=== PATIENT | female | born 1950 | race Two or more races ===

== ENCOUNTER 2016-12-13 11:32 | Emergency (ER) | payer MEDICARE, MEDICAID ==
[~2016-12-13] VITALS: Ht 167.6 cm; Wt 83.5 kg
[2016-12-13 11:48] VITALS: BP 141/92
== END 2016-12-13 13:38 | disposition home or self-care (01) ==
LOC: ER 11:36
DX: S62.514A Nondisplaced fracture of proximal phalanx of right thumb, initial encounter for closed fracture (principal); I10 Essential (primary) hypertension; E11.9 Type 2 diabetes mellitus without complications; W01.0XXA Fall on same level from slipping, tripping and stumbling without subsequent striking against object, initial encounter; Y93.89 Activity, other specified; Y92.89 Other specified places as the place of occurrence of the external cause; Y99.9 Unspecified external cause status
CPT/HCPCS: 29125; 73140; 99284; A4606; Z7610

== ENCOUNTER 2020-10-30 15:53 | Inpatient (IN) | payer MEDICARE, OTHER ==
[~2020-10-30] VITALS: Ht 162.6 cm; Wt 76.7 kg
--- NOTE | 2020-10-30 16:15 | NUR ---
DR. MENDIETA AT FOR GABRIELLE.
[2020-10-30] MEDS ORDERED: DEXAMETHASONE SOD PHOSPHATE 10 MG/ML VIAL IV ONE (16:30)
[2020-10-30] MEDS ORDERED: DEXAMETHASONE SOD PHOSPHATE 10 MG/ML VIAL ONE (16:32)
[2020-10-30] MEDS ORDERED: METF-442 PO (16:59)
[2020-10-30] MEDS ORDERED: IPRA12.9 INH (16:59)
[2020-10-30] MEDS ORDERED: SIMV-49 PO (16:59)
[2020-10-30] MEDS ORDERED: AMLO-212 PO (16:59)
[2020-10-30] MEDS ORDERED: DOXY100C2 PO (16:59)
[2020-10-30] MEDS ORDERED: LINA5TAB PO (16:59)
[2020-10-30] MEDS ORDERED: LORA-258 PO (16:59)
[2020-10-30] MEDS ORDERED: PROP20TA19 PO (16:59)
[2020-10-30] MEDS ORDERED: ICOS1CAP PO (16:59)
[2020-10-30] MEDS ORDERED: DAPA10TA PO (16:59)
[2020-10-30 17:06] LABS: BASOPHILS # (AUTO) 0.2 /CMM (0.0-0.2); BASOPHILS % (AUTO) 2.2 % (0.0-2.0); EOSINOPHILS % (AUTO) 0.2 % (0.0-6.0); HEMATOCRIT 37 % (33-45); HEMOGLOBIN 12.1 g/dL (11.5-14.8); LYMPHOCYTES # (AUTO) 0.6 /CMM (0.8-4.8); LYMPHOCYTES % (AUTO) 5.5 % (20.0-44.0); MEAN CORPUSCULAR HGB CONC 33 g/dl (31.0-36.0); MEAN CORPUSCULAR VOLUME 86 fL (82-100); MONOCYTES # (AUTO) 0.4 /CMM (0.1-1.30); MONOCYTES % (AUTO) 3.2 % (2.0-12.0); NEUTROPHILS # (AUTO) 10.1 /CMM (1.8-8.9); NEUTROPHILS % (AUTO) 88.9 % (43.0-81.0); PLATELET COUNT (AUTO) 346 /CMM (150-450); RED BLOOD CELL COUNT(AUTO) 4.33 MIL/uL (4.0-5.2); WHITE BLOOD COUNT (AUTO) 11.4 K/uL (4.3-11.0)
[2020-10-30 17:14] LABS: CALCIUM, SERUM 8.6 mg/dL (8.5-10.1); CARBON DIOXIDE 26 mmol/L (21-32); CHLORIDE 99 mmol/L (98-107); CREATININE 0.7 mg/dL (0.6-1.3); GLUCOSE 111 mg/dL (74-106); POTASSIUM 4.4 mmol/L (3.5-5.1); SODIUM SERUM 133 mmol/L (136-145); UREA NITROGEN, BLOOD 12 mg/dL (7-18)
[2020-10-30 17:23] LABS: D-DIMER 3.03 mg/L(FEU (0.17-0.50)
[2020-10-30 17:27] LABS: ALANINE AMINOTRANSFERASE 30 U/L (12-78); ALBUMIN 2.2 g/dL (3.4-5.0); ALKALINE PHOSPHATASE 69 U/L (46-116); ASPARTATE AMINOTRANSFERASE 37 U/L (15-37); B-TYPE NATRIURETIC PEPTIDE 289 PG/ML (0-125); BILIRUBIN,TOTAL 0.4 mg/dL (0.2-1.0); TOTAL PROTEIN, SERUM 7.6 g/dL (6.4-8.2)
[2020-10-30] MEDS ORDERED: DEXTROSE 50%-WATER 50 ML DISP.SYRIN IV PRN (17:30)
[2020-10-30] MEDS ORDERED: ALBUTEROL SULFATE 8 GM HFA.AER.AD IH PRN (17:30)
[2020-10-30 17:31] LABS: CREATINE KINASE, TOTAL 53 U/L (26-192); FERRITIN 259 ng/mL (8-388)
--- NOTE | 2020-10-30 17:34 | NUR ---
PATIENT IS ON NON REBREATHER MASK 15 L OF O2 WITH O2SAT 97% IV ON LEFT WRIST 20G, BLOOD SAMPLE SENT TO LAB URINE SAMPLE SENT TO LAB PATINET ALERT ORIENTED X3 DAUGHTER IS PRESENT
[2020-10-30 17:45] LABS: C-REACTIVE PROTEIN 5.4 mg/dL (0.0-0.9)
[2020-10-30 17:48] LABS: BILIRUBIN,URINE Negative (NEGATIVE); COLOR,URINE YELLOW (YELLOW); LEUKOCYTE ESTERASE ,URINE Negative (NEGATIVE); NITRITE, URINE Negative (NEGATIVE); PH,URINE 5.5 (5.0-8.0); PROTEIN,URINE 100 mg/dl (NEGATIVE); UGLUCOSE Negative (NEGATIVE); UROBILINOGEN,URINE 0.2 EU/dL (0.2)
[2020-10-30] MEDS ORDERED: ONDANSETRON HCL/PF 4 MG/2 ML VIAL IVP PRN (18:00)
[2020-10-30] MEDS ORDERED: FAMOTIDINE (20 MG) 20 MG TABLET PO ONE (19:00)
[2020-10-30] MEDS ORDERED: MAG HYDROX/AL HYDROX/SIMETH 30 ML UDC PO PRN (19:00)
[2020-10-30] MEDS ORDERED: FAMOTIDINE (20 MG) 20 MG TABLET PO SCH (19:00)
--- NOTE | 2020-10-30 19:02 | NUR ---
BED 101
[2020-10-30] MEDS ORDERED: FAMOTIDINE (20 MG) 20 MG TABLET ONE (19:05)
--- NOTE | 2020-10-30 19:14 | NUR ---
ATTEMPTED TO GIVE REPORT, NURSE IS NOT AVAILABLE
--- NOTE | 2020-10-30 19:15 | NUR ---
PT CURRENTLY EATING AT BEDSIDE W/ NAD NOTED. PT HAS NO MEDICAL COMPLAINTS AT THIS TIME. PT NOT IN RESPIRATORY DISTRESS. PT CONNECTED TO THE BURLAP MAN AND POX. WILL CONTINUE TO MONITOR
[2020-10-30] MEDS ORDERED: INSULIN REGULAR, HUMAN 100 UNIT/ML 10 ML VIAL ONE (19:21)
[2020-10-30] MEDS: BLOOD SUGAR DIAGNOSTIC 1 EACH STRIP IN SCH ×2 (19:25→22:00)
[2020-10-30] MEDS: INSULIN REGULAR, HUMAN 100 UNIT/ML 3 ML VIAL SQ PRN ×2 (19:25→23:12)
[2020-10-30] MEDS ORDERED: HEPARIN SODIUM, PORCINE 5000 UNITS/1 ML VIAL SQ SCH (21:00)
[2020-10-30] MEDS ORDERED: CEFEPIME 1 GM in IV D5W 50 ML IV SCH (21:00)
[2020-10-30] MEDS: CEFEPIME 2 GM in IV D5W 100 ML IV SCH (21:10)
--- NOTE | 2020-10-30 21:16 | NUR ---
RN NOTES RECEIVED ER ADMISSION REPORT FROM DIVINA SAHU. ALL PERTINENT ADMISSION INFO REGARDING PT NOTED. WILL WAIT FOR PT TO BE TRANSFERRED TO UNIT AND ADDRESS NEEDS ACCORDINGLY. AIRCRAFT POWERPLANT REPAIRER MADE AWARE.
[2020-10-30] MEDS ORDERED: CEFEPIME 1 GM VIAL ONE (21:19)
--- NOTE | 2020-10-30 21:35 | NUR ---
RN NOTES RECEIVED PT FROM ER VIA GURNEY ACCOMPANIED BY 1 ER STAFF AND TRANSFERRED TO BED VIA 2 PERSON ASSIST. PT IS ALERT AND ORIENTED X4 BURKINAN SPEAKING. PT ON 100% NRB MASK WITH RESPIRATIONS EVEN AND UNLABORED, PATIENT ALSO NOTED TO BE COUGHING FROM TIME TO TIME. COMPREHENSIVE PHYSICAL ASSESSMENT AND PATIENT CARE DONE. CALL LIGHT WITHIN REACH, SAFETY MEASURES AND ISOLATION PRECAUTION IN PLACE, WILL CONTINUE MONITOR AND ASSESS THROUGHOUT THE SHIFT. WILL CARRY OUT MD ORDERS ACCORDINGLY. LOADING UNIT OPERATOR MADE AWARE.
--- NOTE | 2020-10-30 21:42 | NUR ---
PT TRANSPORTED TO ROOM IN STABLE CONDITION VIA ACLS PROTOCOL
[2020-10-30 22:00] VITALS: BP 134/69
--- NOTE | 2020-10-30 22:15 | NUR ---
2215 NOTED LEFT WRIST IV SITE LEAKING, INSERTED NEW IV ON LFA WITH GAUGE 20 CATH, ATTEMPTED X1 WITH GOOD BLOOD RETURN NOTED. SITE SECURED AND LABELED. PATIENT TOLERATED PROCEDURE WELL. OLD IV SITE REMOVED.
[2020-10-30] MEDS: SIMVASTATIN 20 MG TABLET PO SCH ×2 (22:45→23:14)
[2020-10-30] MEDS: PROPRANOLOL HCL 10 MG TABLET PO SCH (22:45)
--- NOTE | 2020-10-30 23:00 | NUR ---
RN NOTES PATIENT REMAINS IN NO ACUTE RESPIRATORY DISTRESS AT THIS TIME, NO CHANGES TO CONDITION/STATUS. OBGYN HOSPITALIST PHYSICIAN WELL AWARE. WILL CONTINUE TO MONITOR AND REASSESS FOR ANY CHANGES THROUGHOUT THE SHIFT
--- NOTE | 2020-10-30 23:15 | NUR ---
RN NOTES PATIENT REFUSED INSULIN COVERAGE ; ACCU CHECK DON-189MG/DL. PATIENT SAID ( WITH HEAVENLY TRANSPORTATION MAINTENANCE OPERATOR <DAUGHTER>) THAT PT DOESNT DO INSULIN AND ONLY ORAL MEDICATION (METFORMIN) PATIENT ALSO REFUSED TO TAKE ZOCOR /SIMVASTATIN SHE DOESNT TAKE ANY CHOLESTEROL MEDS. CORNELL MURCIA MADE AWARE. WILL INFORM MD. Addendum: 10/30/20 at 0298 by JONATHAN PASTOR RN WILL DISCARD ZOCOR IT HAS ALREADY BEEN OPEN FOR ADMINISTRATION. CORNELL MURCIA MADE AWARE.
[2020-10-30] MEDS: LORAZEPAM 1 MG TABLET PO PRN (23:21)
[2020-10-31] VITALS: BP 135/69
--- NOTE | 2020-10-31 03:00 | NUR ---
RN NOTES NO CHANGE IN PATIENT CONDITION AT THIS TIME PATIENT VITALS STABLE, NO SIGNS OF ACUTE RESPIRATORY DISTRESS. CHEMICAL RECOVERY OPERATOR MADE AWARE. WILL CONTINUE TO MONITOR AND REASSESS FOR ANY CHANGES THROUGHOUT THE SHIFT.
[2020-10-31] MEDS: ACETAMINOPHEN 325 MG TABLET PO PRN ×3 (03:53→15:34)
--- NOTE | 2020-10-31 03:53 | NUR ---
DIVINA NOTES NOTED PT'S TEMP 101.4@6068. PRN MEDS GIVEN AND COOLING MEASURES PROVIDED. CORNELL MURCIA MADE AWARE. WILL RE-EVALUATE AFTER 30 MINUTES- 1 HOUR. WILL CONTINUE TO MONITOR Addendum: 10/31/20 at 0659 by JONATHAN PASTOR RN @0600 TEMPT IS AT 98.3. WILL CONTINUE TO MONITOR AND ASSESS. CORNELL MURCIA MADE AWARE
[2020-10-31 04:00] VITALS: BP 132/72
[2020-10-31 06:42] LABS: BASOPHILS % (AUTO) 0.1 % (0.0-2.0); HEMATOCRIT 35 % (33-45); HEMOGLOBIN 11.5 g/dL (11.5-14.8); LYMPHOCYTES # (AUTO) 0.9 /CMM (0.8-4.8); LYMPHOCYTES % (AUTO) 9.7 % (20.0-44.0); MEAN CORPUSCULAR HGB CONC 33 g/dl (31.0-36.0); MEAN CORPUSCULAR VOLUME 84 fL (82-100); MONOCYTES # (AUTO) 0.3 /CMM (0.1-1.30); MONOCYTES % (AUTO) 3.6 % (2.0-12.0); NEUTROPHILS # (AUTO) 7.7 /CMM (1.8-8.9); NEUTROPHILS % (AUTO) 86.6 % (43.0-81.0); PLATELET COUNT (AUTO) 331 /CMM (150-450); RED BLOOD CELL COUNT(AUTO) 4.19 MIL/uL (4.0-5.2); WHITE BLOOD COUNT (AUTO) 8.9 K/uL (4.3-11.0)
--- NOTE | 2020-10-31 06:58 | NUR ---
RN CLOSING NOTE: PATIENT REMAINS IN ROOM IN NO SIGNS OF RESPIRATORY DISTRESS. SAFETY MEASURES IMPLEMENTED, BED IN LOWEST POSITION, LOCKED, SIDE RAILS UP, CALL LIGHT WITHIN REACH. ALL NEEDS AND ORDERS ADDRESSED DURING THE SHIFT. IV ACCESS MAINTAINED INTACT, SECURED AND FLUSHING WELL. ALL DUE MEDS GIVEN ORDERED & SCHEDULED ; PATIENT TOLERATED WELL. PATIENT KEPT CLEAN AND COMFORTABLE WITHIN THE SHIFT. PATIENT ENDORSED TO INCOMING SHIFT RN WITH STABLE VITAL SIGN AND FOR CONTINUITY OF CARE.
[2020-10-31 07:19] LABS: ALBUMIN 2.1 g/dL (3.4-5.0); BILIRUBIN,TOTAL 0.3 mg/dL (0.2-1.0); CALCIUM, SERUM 8.4 mg/dL (8.5-10.1); CREATININE 0.7 mg/dL (0.6-1.3); POTASSIUM 3.5 mmol/L (3.5-5.1)
--- NOTE | 2020-10-31 07:30 | NUR ---
RN OPENING NOTE PT IS ALERT AND ORIENTED X4 EGYPTIAN SPEAKING. PT ON 100% NRB MASK WITH RESPIRATIONS EVEN AND UNLABORED, PATIENT ALSO NOTED TO BE COUGHING FROM TIME TO TIME. IV NOTED ON L FOREARM 20G, INTACT AND PATENT. CALL LIGHT WITHIN REACH, SAFETY MEASURES AND ISOLATION PRECAUTION IN PLACE, WILL CONTINUE MONITOR AND ASSESS THROUGHOUT THE SHIFT. WILL CONT TO MONITOR AND PROVIDE TREATMENT
[2020-10-31 08:00] VITALS: BP 148/72
[2020-10-31] MEDS: BLOOD SUGAR DIAGNOSTIC 1 EACH STRIP IN SCH ×4 (09:08→22:24)
[2020-10-31] MEDS: AMLODIPINE BESYLATE 5 MG TABLET PO SCH (09:10)
[2020-10-31] MEDS: PROPRANOLOL HCL 10 MG TABLET PO SCH ×2 (09:10→20:48)
[2020-10-31] MEDS: DEXAMETHASONE SOD PHOSPHATE 10 MG/ML VIAL IV SCH (09:10)
[2020-10-31] MEDS: DOXYCYCLINE HYCLATE (100 MG) 100 MG TABLET PO SCH ×2 (09:10→17:16)
[2020-10-31] MEDS: GUAIFENESIN/CODEINE 10 ML UDC PO PRN ×2 (09:11→15:37)
[2020-10-31] MEDS: CEFEPIME 2 GM in IV D5W 100 ML IV SCH ×2 (09:11→20:48)
[2020-10-31 12:00] VITALS: BP 137/63
[2020-10-31] MEDS: INSULIN REGULAR, HUMAN 100 UNIT/ML 3 ML VIAL SQ PRN ×3 (12:06→22:26)
[2020-10-31] MEDS: ENSURE ENLIVE CHOC 237 ML CAN PO SCH ×2 (12:06→17:16)
[2020-10-31 16:00] VITALS: BP 120/69
[2020-10-31] MEDS: FUROSEMIDE 20 MG/2 ML VIAL IV SCH (17:16)
[2020-10-31] MEDS: APIXABAN 5 MG TABLET PO SCH (17:46)
--- NOTE | 2020-10-31 18:47 | NUR ---
RN CLOSING NOTE PT IS ALERT AND ORIENTED X4 VENEZUELAN SPEAKING. PT ON 100% NRB MASK WITH RESPIRATIONS EVEN AND UNLABORED, PATIENT ALSO NOTED TO BE COUGHING FROM TIME TO TIME. IV NOTED ON L FOREARM 20G, INTACT AND PATENT. CURRENTLY ON CONSISTENT CARB DIET, TOELRATING WELL BUT ALSO CONSUMING FOODS BROUGHT BY FAMILY. CALL LIGHT WITHIN REACH, SAFETY MEASURES AND ISOLATION PRECAUTION IN PLACE, WILL CONTINUE MONITOR AND ASSESS THROUGHOUT THE SHIFT. WILL ENDORSE TO RIVET MACHINE OPERATOR NURSE FOR MICK.
--- NOTE | 2020-10-31 19:40 | NUR ---
RN OPENING NOTES RECEIVED PT IN BED, SLEEPING EASILY AROUSABLE BY VERBAL STIMULI. ALERT AND ORIENTED X4. ON O2 NONREBREATHER AT 15L. DENIES ANY SOB. NO RESP DISTRESS NOTED. NONPRODUCTIVE COUGH NOTED. KEPT HOB ELEVATED. ON TELE MONITORING SHOWS SR WITH HR OF 63. DENIES ANY PAIN OR WEAKNESS AT THIS TIME. LFA IV G20 PATENT AND INTACT, FLUSHED WITH NS. ALL SAFETY MEASURES IMPLEMENTED PER PROTOCOL. CALL LIGHT WITHIN REACH. BED LOCKED IN LOWEST POSITION.
[2020-10-31 20:00] VITALS: BP 114/71
[2020-10-31] MEDS: SIMVASTATIN 20 MG TABLET PO SCH (22:18)
[2020-10-31] MEDS: LORAZEPAM 1 MG TABLET PO PRN (22:42)
--- NOTE | 2020-10-31 22:42 | NUR ---
RN NOTES PT REQUESTED ATIVAN FOR SLEEP. DENIES ANY ANXIETY. NO RESP DISTRESS NOTED. ATIVAN 0.5MG GIVEN ORDERED.
[2020-11-01] VITALS: BP 120/67
--- NOTE | 2020-11-01 02:17 | NUR ---
RN NOTES SAMEERA FROM LAB CALLED, PT POSITIVE FOR COVID PCR. CHARGE NURSE AWARE.
[2020-11-01 04:00] VITALS: BP 131/78
[2020-11-01] MEDS: ACETAMINOPHEN 325 MG TABLET PO PRN (04:04)
--- NOTE | 2020-11-01 04:05 | NUR ---
RN NOTE NOTED WITH ELEVATED BODY TEMP 101.3. NO CHANGES IN LOC NOTED. TYLENOL 650 MG GIVEN ORDERED. COOLING MEASURES APPLIED. WILL CONTINUE TO MONITOR.
[2020-11-01] MEDS: GUAIFENESIN/CODEINE 10 ML UDC PO PRN ×3 (04:16→17:51)
--- NOTE | 2020-11-01 06:15 | NUR ---
RN NOTE BODY TEMP AT 99.9.
[2020-11-01 06:17] LABS: BASOPHILS % (AUTO) 0.2 % (0.0-2.0); EOSINOPHILS % (AUTO) 0.1 % (0.0-6.0); HEMATOCRIT 35 % (33-45); HEMOGLOBIN 11.9 g/dL (11.5-14.8); LYMPHOCYTES # (AUTO) 0.8 /CMM (0.8-4.8); LYMPHOCYTES % (AUTO) 8.8 % (20.0-44.0); MEAN CORPUSCULAR HGB CONC 34 g/dl (31.0-36.0); MEAN CORPUSCULAR VOLUME 84 fL (82-100); MONOCYTES # (AUTO) 0.4 /CMM (0.1-1.30); NEUTROPHILS # (AUTO) 8.3 /CMM (1.8-8.9); NEUTROPHILS % (AUTO) 86.9 % (43.0-81.0); PLATELET COUNT (AUTO) 352 /CMM (150-450); RED BLOOD CELL COUNT(AUTO) 4.23 MIL/uL (4.0-5.2); WHITE BLOOD COUNT (AUTO) 9.6 K/uL (4.3-11.0)
[2020-11-01 07:00] LABS: CALCIUM, SERUM 9.1 mg/dL (8.5-10.1); CREATININE 0.8 mg/dL (0.6-1.3); POTASSIUM 3.7 mmol/L (3.5-5.1)
--- NOTE | 2020-11-01 07:15 | NUR ---
RN CLOSING NOTES PT CONTINUE ON NRB AT 15L O2 SAT AT 94 %. DENIES ANY SOB. PT WAS COUGHING, ROBITUSSIN AC SYRUP GIVEN ORDERED. NO RESP DISTRESS NOTED. TELE MONITORING SHOWS SR. ON FREQUENT VISUAL CHECK. ASSISTED IN GOING TO BEDSIDE COMMODE. DENIES ANY PAIN AT THIS TIME. KEPT HOB ELEVATED. ASSISTED TO NEEDS. CALL LIGHT WITHIN REACH AT ALL TIMES. BED LOCKED IN LOWEST POSITION. ISOLATION PRECAUTION MAINTAINED.
[2020-11-01 08:00] VITALS: BP 127/74
[2020-11-01] MEDS: ENSURE ENLIVE CHOC 237 ML CAN PO SCH ×3 (08:00→17:44)
--- NOTE | 2020-11-01 08:00 | NUR ---
RN Opening note Received patient in bed, awaken able to responds all stimuli, Pt does no c/o pain or distress. Skin is warm to touch keep clean/dry intact IV site, respiratory even and unlabored with oxygen at 15L via NRM with high flow O2sat 90-93%. Kept locked bed with elevated HOB for aspiration precaution and ensure airway and lowest bed foe safety. Call light within reach, will continue to monitor.
[2020-11-01 08:41] LABS: ABG BASE EXCESS 5.4 mmol/L; ABG OXYGEN SATURATION 90.1 % (92.0-98.5); ABG PCO2 36.1 mmHg (35.0-45.0); ABG PH 7.514 (7.350-7.450); ABG PO2 55.6 mmHg (75.0-100.0); AaDO2 621.3 mmHg; COHb 0.2 % (0.5-1.5); MetHb 0.3 % (0.0-1.5); O2Hb 89.6 % (94.0-97.0); SITE, ABG Right Radial; VENT MODE, BG NON REBREATHER
[2020-11-01] MEDS: AMLODIPINE BESYLATE 5 MG TABLET PO SCH (09:00)
[2020-11-01] MEDS: BLOOD SUGAR DIAGNOSTIC 1 EACH STRIP IN SCH ×4 (09:42→21:30)
[2020-11-01] MEDS: CEFEPIME 2 GM in IV D5W 100 ML IV SCH ×2 (09:43→21:29)
[2020-11-01] MEDS: DEXAMETHASONE SOD PHOSPHATE 10 MG/ML VIAL IV SCH (09:44)
[2020-11-01] MEDS: DOXYCYCLINE HYCLATE (100 MG) 100 MG TABLET PO SCH ×2 (09:44→17:51)
[2020-11-01] MEDS: FUROSEMIDE 20 MG/2 ML VIAL IV SCH (09:44)
[2020-11-01] MEDS: PROPRANOLOL HCL 10 MG TABLET PO SCH ×2 (09:44→21:12)
[2020-11-01 09:45] LABS: LYMPHOCYTES % (MANUAL) 9 % (16-48); MONOCYTES % (MANUAL) 5 % (0-11.0); MYELOCYTES % 1 % (0-0); NEUTROPHILS % (MANUAL) 85 (42-76)
[2020-11-01] MEDS: LINAGLIPTIN 5 MG TABLET PO SCH (09:45)
[2020-11-01] MEDS: APIXABAN 5 MG TABLET PO SCH ×2 (09:46→17:52)
--- NOTE | 2020-11-01 09:48 | NUR ---
PLACED INTO HIGH FLOW DUE TO 56 PAO2 AND 93% SPO2 ON NONREBREATHER Addendum: 11/01/20 at 0948 by KATHERINE ARDON RT Amended: Links added.
[2020-11-01 12:00] VITALS: BP 130/73
[2020-11-01] MEDS ORDERED: TOCILIZUMAB 400 MG in IV NS 0.9% 80 ML IV ONE (12:00)
[2020-11-01] MEDS: INSULIN REGULAR, HUMAN 100 UNIT/ML 3 ML VIAL SQ PRN ×3 (12:44→21:31)
[2020-11-01] MEDS ORDERED: REMDESIVIR (CHARGED) 200 MG, *LOADING DOSE 1 EA in IV NS 0.9% 210 ML IV ONE (14:00)
[2020-11-01 16:00] VITALS: BP 129/75
--- NOTE | 2020-11-01 18:51 | NUR ---
RN closing Patient in bed resting, does no appears distress or discomfort. Skin is warm to touch, keep clean/dry, intact new midline on left upper arm, good patent with flash. Respiratory even and unlabored with oxygen at 15L via NRM with HFNC O2sat 90-93%. Kept elevated HOB for ensure air way and aspiration precaution and lowest bed for safety. Call light within reach, will endorse retail shift supervisor
--- NOTE | 2020-11-01 19:25 | NUR ---
"RN OPENING NOTES: RECEIVED PT A/OX 4 IN BED RESTING COMFORTABLY. PATIENT IN NO S/SX OF ACUTE DISTRESS AT THIS TIME BUT NOTED SOME INTERMITTENT COUGHING EPISODES. CURRENTLY PATIENT IS ON HIGH FLOW 40L|100% AND NRB MASK @15L|100%; TOLERATING WELL AND 0 SAT IS AT 92%. PATIENT ON TELE MONITORING READING SINUS RHYTHM HR IS @70S AT THE TIME OF RECEIVED. PATIENT ON CONSISTENT CARB DIET; TOLERATES WELL. NOTED IV SITE ON L UA MIDLINE ;PATENT, INTACT AND FLUSHING WELL; NO S/S OF INFECTION OR INFILTRATION. SAFETY MEASURES HAVE BEEN PROVIDED AND IMPLEMENTED. PATIENT BED ALARM IS ON. HEAD OF BED ELEVATED. BED IS LOCKED, IN LOWEST POSITION AND SIDE RAILS UP. CALL LIGHT WITHIN REACH OF THE PATIENT. APPLICABLE ISOLATION PRECAUTIONS IN PLACE. WILL CONTINUE TO MONITOR AND REASSESS FOR ANY CHANGES AND WILL CARRY OUT ANY ONGOING AND ACTIVE MD ORDER."
[2020-11-01 20:00] VITALS: BP 113/70
--- NOTE | 2020-11-01 21:00 | NUR ---
RN NOTES PICC LINE NURSE (COURTNEY) FACILITATED MIDLINE INSERTION @ R UA MIDLINE #18. NOTED OT BE SECURED, INTACT, PATENT AND FLUSHING WELL. DERRICK BUILDER MADE AWARE. WILL CONTINUE TO MONITOR AND ASSES THROUGHOUT THE SHIFT.
[2020-11-01] MEDS: SIMVASTATIN 20 MG TABLET PO SCH (21:11)
--- NOTE | 2020-11-01 23:00 | NUR ---
RN NOTES PATIENT REMAINS IN NO ACUTE RESPIRATORY DISTRESS AT THIS TIME, NO CHANGES TO CONDITION/STATUS. BOOKY WELL AWARE. WILL CONTINUE TO MONITOR AND REASSESS FOR ANY CHANGES THROUGHOUT THE SHIFT
[2020-11-01] MEDS: LORAZEPAM 1 MG TABLET PO PRN (23:14)
[2020-11-02] VITALS: BP_SYST 111; BP_SYST 115; BP_DIAS 64; BP_DIAS 65
--- NOTE | 2020-11-02 01:00 | NUR ---
RN NOTES NOTED PATIENT'S O2 SAT AT THIS TIME @ 88%. PATIENT ON SIDE LYING POSITION AND BEEN COUGHING INTERMITTENTLY. PRN TURNED AND REPOSITIONED PATIENT TO MAXIMIZE GOOD VENTILATION AND O2 ADMINISTRATION VIA NC- HIGHFLOW AND NRB MASK. FELT STRIP FINISHER MADE AWARE AND WILL INFORM DOMINIK CONNER AND TO SECURE FOR ANY ORDERS NEEDED.
--- NOTE | 2020-11-02 01:15 | NUR ---
RN NOTES CALLED DOMINIK CONNER, AND PROVIDED UPDATE REGARDING PATIENT, ALL PERTINENT INFO GIVEN REGARDING PATIENT AND CURRENT STATUS ( O2 SAT @88%). NO ORDERS GIVEN. MALL PLANT CARETAKER MADE AWARE. WILL CONTINUE TO MONITOR AND ASSESS THROUGHOUT THE SHIFT.
[2020-11-02] MEDS: GUAIFENESIN/CODEINE 10 ML UDC PO PRN ×2 (01:19→23:33)
--- NOTE | 2020-11-02 03:00 | NUR ---
RN NOTES NO CHANGES IN PATIENT CONDITION AT THIS TIME PATIENT VITALS STABLE, NO SIGNS OF ACUTE RESPIRATORY DISTRESS. PATIENT STILL IN BED SLEEPING COMFORTABLY. NO COMPLAINTS OF PAIN OR ANY DISCOMFORT AT THIS TIME. PATIENT 02 SATURATION IS @93% AT THIS TIME. WILL CONTINUE TO MONITOR AND REASSESS FOR ANY CHANGES THROUGHOUT THE SHIFT.
[2020-11-02 04:00] VITALS: BP 107/54
--- NOTE | 2020-11-02 06:56 | NUR ---
RN CLOSING NOTE: PATIENT REMAINS IN ROOM IN NO SIGNS OF RESPIRATORY DISTRESS. 02 SAT REMAINS WITHIN 90-93% STILL ON HIGHFLOW AND NRB MASK AT THIS TIME SAME SETTINGS PRESCRIBED. WILL INFORM INCOMING RN AND AM SHIFT SALES AND IN HOME DELIVERY SPECIALIST THAT PT HAD EPISODES THAT O2 SAT WENT BELOW 88% AND NEEDS TO BE STRICTLY MONITORED. SAFETY MEASURES IMPLEMENTED, BED IN LOWEST POSITION, LOCKED, SIDE RAILS UP, CALL LIGHT WITHIN REACH. ALL NEEDS AND ORDERS ADDRESSED DURING THE SHIFT. IV ACCESS MAINTAINED INTACT, SECURED AND FLUSHING WELL. ALL DUE MEDS GIVEN ORDERED & SCHEDULED ; PATIENT TOLERATED WELL. PATIENT KEPT CLEAN AND COMFORTABLE WITHIN THE SHIFT. PATIENT ENDORSED TO INCOMING SHIFT RN WITH STABLE VITAL SIGNS AND FOR CONTINUITY OF CARE.
--- NOTE | 2020-11-02 07:52 | NUR ---
RN OPENING NOTE PATIENT IS IN BED WITH HOB AT SEMI FOWLERS POSITION. HIGH FLOW OXYGEN IS APPLIED. PATIENT IS AOX4. SR NOTED ON MONITOR. COMMODE IS AT BEDSIDE. SKIN IS INTACT. FISH AND APURVA MIDLINES ARE PATENT, INTACT, AND HAVE NO SIGNS OF INFILTRATION. BED IS LOCKED IN THE LOWEST POSITION, CALL OTTO WITHIN REACH, 3 GUARD RAILS RAISED, AND ALL HOSPITAL SAFETY PRECAUTIONS ARE BEING FOLLOWED. WILL CONTINUE TO MONITOR THROUGHOUT SHIFT.
[2020-11-02] MEDS: BLOOD SUGAR DIAGNOSTIC 1 EACH STRIP IN SCH ×4 (07:55→22:09)
[2020-11-02 08:00] VITALS: BP_SYST 110; BP_SYST 113; BP_DIAS 51; BP_DIAS 68
[2020-11-02 08:01] LABS: BASOPHILS % (AUTO) 0.2 % (0.0-2.0); EOSINOPHILS % (AUTO) 0.2 % (0.0-6.0); HEMATOCRIT 37 % (33-45); HEMOGLOBIN 12.2 g/dL (11.5-14.8); LYMPHOCYTES # (AUTO) 0.9 /CMM (0.8-4.8); LYMPHOCYTES % (AUTO) 9.2 % (20.0-44.0); MEAN CORPUSCULAR HGB CONC 33 g/dl (31.0-36.0); MEAN CORPUSCULAR VOLUME 84 fL (82-100); MONOCYTES # (AUTO) 0.4 /CMM (0.1-1.30); MONOCYTES % (AUTO) 4.1 % (2.0-12.0); NEUTROPHILS # (AUTO) 8.7 /CMM (1.8-8.9); NEUTROPHILS % (AUTO) 86.3 % (43.0-81.0); PLATELET COUNT (AUTO) 423 /CMM (150-450); RED BLOOD CELL COUNT(AUTO) 4.34 MIL/uL (4.0-5.2)
[2020-11-02 08:04] LABS: CALCIUM, SERUM 9.4 mg/dL (8.5-10.1); CARBON DIOXIDE 27 mmol/L (21-32); CHLORIDE 102 mmol/L (98-107); CREATININE 0.7 mg/dL (0.6-1.3); GLUCOSE 132 mg/dL (74-106); POTASSIUM 3.5 mmol/L (3.5-5.1); SODIUM SERUM 140 mmol/L (136-145); UREA NITROGEN, BLOOD 21 mg/dL (7-18)
[2020-11-02 08:13] LABS: BILIRUBIN,DIRECT 0.1 mg/dL (0.0-0.2); BILIRUBIN,TOTAL 0.3 mg/dL (0.2-1.0); TOTAL PROTEIN, SERUM 7.2 g/dL (6.4-8.2)
[2020-11-02 08:46] LABS: ABG BASE EXCESS 4.1 mmol/L; ABG OXYGEN SATURATION 89.4 % (92.0-98.5); ABG PCO2 35.4 mmHg (35.0-45.0); ABG PH 7.502 (7.350-7.450); ABG PO2 53.8 mmHg (75.0-100.0); AaDO2 623.8 mmHg; COHb 0.3 % (0.5-1.5); MetHb 0.1 % (0.0-1.5); SITE, ABG Right Radial; VENT MODE, BG HIGH FLOW 40 L/100%+ NRM
--- NOTE | 2020-11-02 08:50 | NUR ---
lactic acid 2.0 previous level was 1.5 was notified and exam. to patient at present time
--- NOTE | 2020-11-02 08:59 | NUR ---
ABG results given to and miller KRAMER as well . patient sitting up in chair with high flow no distress noted
[2020-11-02 09:13] LABS: FERRITIN 364 ng/mL (8-388)
[2020-11-02] MEDS: ENSURE ENLIVE CHOC 237 ML CAN PO SCH ×3 (09:22→16:28)
[2020-11-02] MEDS: DOXYCYCLINE HYCLATE (100 MG) 100 MG TABLET PO SCH ×2 (09:41→16:19)
[2020-11-02] MEDS: DEXAMETHASONE SOD PHOSPHATE 10 MG/ML VIAL IV SCH (09:41)
[2020-11-02] MEDS: CEFEPIME 2 GM in IV D5W 100 ML IV SCH ×2 (09:41→22:08)
[2020-11-02] MEDS: PROPRANOLOL HCL 10 MG TABLET PO SCH ×2 (09:42→22:28)
[2020-11-02] MEDS: AMLODIPINE BESYLATE 5 MG TABLET PO SCH (09:43)
[2020-11-02] MEDS: LINAGLIPTIN 5 MG TABLET PO SCH (09:43)
[2020-11-02] MEDS: APIXABAN 5 MG TABLET PO SCH ×2 (09:50→16:20)
[2020-11-02] MEDS: INSULIN REGULAR, HUMAN 100 UNIT/ML 3 ML VIAL SQ PRN ×3 (11:38→22:22)
[2020-11-02 12:00] VITALS: BP 110/51
[2020-11-02] MEDS ORDERED: REMDESIVIR (CHARGED) 100 MG in IV NS 0.9% 230 ML IV SCH (12:00)
[2020-11-02 12:28] LABS: LYMPHOCYTES % (MANUAL) 8 % (16-48); METAMYELOCYTES % 1 % (0-0); MONOCYTES % (MANUAL) 8 % (0-11.0); MYELOCYTES % 2 % (0-0); NEUTROPHILS % (MANUAL) 81 (42-76)
[2020-11-02] MEDS ORDERED: ACETAMINOPHEN 325 MG TABLET PO ONE (14:00)
[2020-11-02] MEDS ORDERED: diphenhydrAMINE HCL 50 MG/ML VIAL IV ONE (14:00)
[2020-11-02] MEDS ORDERED: TOCILIZUMAB 400 MG in IV NS 0.9% 80 ML IV ONE (14:30)
[2020-11-02 16:00] VITALS: BP 134/70
[2020-11-02] MEDS: REMDESIVIR (CHARGED) 100 MG in IV NS 0.9% 100 ML IV SCH (16:17)
--- NOTE | 2020-11-02 19:10 | NUR ---
RN CLOSING NOTE PATIENT IS IN BED LAYING LATERALLY IN THE SEMI FOWLERS POSITION. PATIENT IS AOX4. HIGH FLOW AND NRB ARE BOTH APPLIED WITH 91% O2 SATURATION VIA MONITOR. SKIN IS INTACT. FISH MIDLINE AND APURVA MIDLINE ARE PATENT, INTACT, AND HAVE NO SIGNS OF INFILTRATION. BED IS LOCKED IN THE LOWEST POSITION, 3 GUARD RAILS RAISED, CALL OTTO WITHIN REACH, AND ALL HOSPITAL SAFETY PRECAUTIONS ARE BEING FOLLOWED. WILL ENDORSE TO MANAGER CHANNEL NURSE.
--- NOTE | 2020-11-02 19:50 | NUR ---
RN OPENING NOTE RECEIVED PT IN BED. A/O X 4, PRIMARILY CAYMAN ISLANDER SPEAKING, SOME PASHTO ABLE TO MAKE NEEDS KNOWN. PT IS ON NONREBREATHER MASK 15L AND HIGH FLOW 40L FIO2 100%, PT SATURATION IS 92% AT THIS TIME. NO SOB OR RESP DISTRESS AT THIS TIME, ON TELE MONITOR PT PRESENTS WITH NSR HR OF 71 AT THIS TIME. DISCOURAGE USE OF BEDSIDE COMMODE TO AVOID DESATURATION. IV SITES FLUSHED, PATENT. DRESSINGS CLEAN DRY INTACT. SAFETY MEASURES IN PLACE, ISOLATION PRECAUTIONS IMPLEMENTED, HOB ELEVATED SEMI FOWLERS, SIDE RAILS UP X3, BED LOCKED IN LOWEST POSITION WITH BED ALARM ON. CALL LIGHT WITHIN REACH. WILL CONT TO MONITOR.
[2020-11-02 20:00] VITALS: BP 106/51
[2020-11-02] MEDS: SIMVASTATIN 20 MG TABLET PO SCH (22:09)
[2020-11-03] VITALS: BP 111/65
[2020-11-03 04:00] VITALS: BP 116/65
[2020-11-03 06:47] LABS: BASOPHILS % (AUTO) 0.1 % (0.0-2.0); EOSINOPHILS % (AUTO) 0.1 % (0.0-6.0); HEMATOCRIT 35 % (33-45); HEMOGLOBIN 11.4 g/dL (11.5-14.8); LYMPHOCYTES # (AUTO) 1.1 /CMM (0.8-4.8); LYMPHOCYTES % (AUTO) 11.1 % (20.0-44.0); MEAN CORPUSCULAR HGB CONC 33 g/dl (31.0-36.0); MEAN CORPUSCULAR VOLUME 84 fL (82-100); MONOCYTES # (AUTO) 0.3 /CMM (0.1-1.30); NEUTROPHILS # (AUTO) 8.5 /CMM (1.8-8.9); NEUTROPHILS % (AUTO) 85.7 % (43.0-81.0); PLATELET COUNT (AUTO) 490 /CMM (150-450); RED BLOOD CELL COUNT(AUTO) 4.15 MIL/uL (4.0-5.2); WHITE BLOOD COUNT (AUTO) 9.9 K/uL (4.3-11.0)
--- NOTE | 2020-11-03 06:55 | NUR ---
RN CLOSING NOTES NO SIGNIFICANT CHANGES IN PT CONDITION ON MY SHIFT. PT RESTED WELL. EDUCATED PT ON AVOIDING BEDSIDE COMMODE TO AVOID DESATURATION, PT BECOMES OUT OF BREATH. SAFETY MEASURES IN PLACE, HOB ELEVATED. SIDE RAILS X2. BED LOCKED IN LOWEST POSITION. CALL LIGHT WITHIN REACH. AFEBRILE, PT DENIES PAIN. ALL NEEDS ATTENDED. WILL ENDORSE TO AM NURSE FOR CONTINUATION OF CARE.
--- NOTE | 2020-11-03 07:30 | NUR ---
RN OPENING NOTE PATIENT IS IN BED WITH HOB AT SEMI FOWLERS POSITION AND LAYING ON THE LEFT LATERAL POSITION. PATIENT IS AOX4. NSR NOTED ON MONITOR. SKIN IS INTACT. HF AT 40L AND 100% WITH NRB 15L ARE APPLIED. FISH MIDLINE AND APURVA MIDLINE ARE BOTH PATENT, INTACT, AND HAVE NO SIGNS OF INFILTRATION. BED IS LOCKED IN THE LOWEST POSITION, 3 GUARD RAILS RAISED, CALL OTTO WITHIN REACH, AND ALL HOSPITAL SAFETY PRECAUTIONS ARE IN PLACE. WILL MONITOR THROUGHOUT SHIFT.
[2020-11-03 07:50] LABS: ALBUMIN 1.9 g/dL (3.4-5.0); BILIRUBIN,DIRECT 0.1 mg/dL (0.0-0.2); BILIRUBIN,TOTAL 0.2 mg/dL (0.2-1.0); CALCIUM, SERUM 9.2 mg/dL (8.5-10.1); CREATININE 0.7 mg/dL (0.6-1.3); POTASSIUM 3.7 mmol/L (3.5-5.1)
[2020-11-03] MEDS: INSULIN REGULAR, HUMAN 100 UNIT/ML 3 ML VIAL SQ PRN ×4 (07:58→22:49)
[2020-11-03] MEDS: BLOOD SUGAR DIAGNOSTIC 1 EACH STRIP IN SCH ×4 (07:58→22:49)
[2020-11-03 08:00] VITALS: BP 117/65
[2020-11-03] MEDS: ENSURE ENLIVE CHOC 237 ML CAN PO SCH ×2 (08:00→11:16)
[2020-11-03] MEDS: CEFEPIME 2 GM in IV D5W 100 ML IV SCH ×2 (08:41→21:57)
[2020-11-03] MEDS: PROPRANOLOL HCL 10 MG TABLET PO SCH ×2 (08:42→21:58)
[2020-11-03] MEDS: DEXAMETHASONE SOD PHOSPHATE 10 MG/ML VIAL IV SCH (08:42)
[2020-11-03] MEDS: DOXYCYCLINE HYCLATE (100 MG) 100 MG TABLET PO SCH ×2 (08:42→16:46)
[2020-11-03] MEDS: LINAGLIPTIN 5 MG TABLET PO SCH (08:43)
[2020-11-03] MEDS: AMLODIPINE BESYLATE 5 MG TABLET PO SCH (08:43)
[2020-11-03] MEDS: APIXABAN 5 MG TABLET PO SCH ×2 (08:44→16:47)
[2020-11-03 09:56] LABS: BAND % (MANUAL) 2 % (0.0-5.0); LYMPHOCYTES % (MANUAL) 10 % (16-48); MONOCYTES % (MANUAL) 4 % (0-11.0); NEUTROPHILS % (MANUAL) 84 (42-76)
[2020-11-03 12:00] VITALS: BP 116/52
[2020-11-03] MEDS: GLUCERNA SHAKE 237 ML CAN PO SCH ×2 (12:59→17:00)
[2020-11-03] MEDS: REMDESIVIR (CHARGED) 100 MG in IV NS 0.9% 100 ML IV SCH (14:52)
[2020-11-03 16:00] VITALS: BP 101/63
--- NOTE | 2020-11-03 18:44 | NUR ---
RN CLOSING NOTE PATIENT IS IN BED WITH HOB AT SEMI FOWLERS POSITION LAYING IN THE RIGHT LATERAL POSITION. PATIENT IS AOX4 WITH HIGH FLOW AT 40L AT 100% AND NRB AT 15L ARE APPLIED. NSR NOTED ON MONITOR. BEDPAN AT BEDSIDE. SKIN IS INTACT. BED ALARM IS ARMED. FISH MIDLINE AND APURVA MIDLINE ARE BOTH PATENT, INTACT, AND HAVE NO SIGNS OF INFILTRATION. BED IS LOCKED IN THE LOWEST POSITION, CALL OTTO WITHIN REACH, 3 GUARD RAILS RAISED, AND ALL HOSPITAL SAFETY PRECAUTIONS ARE IN PLACE. WILL ENDORSE TO ALUMINUM BOAT INSPECTOR RN.
[2020-11-03 20:00] VITALS: BP 127/72
--- NOTE | 2020-11-03 20:00 | NUR ---
RN NOTE RECEIVED PT IN BED, ALERT AND ORIENTED, VERBALLY RESPONSIVE. ON HIGHFLOW 40L FIO2 AT 100 % WITH NONREBREATHER 15L. PT DENIES ANY SOB AT THIS TIME. O2 SAT AT 90-91 %. COUGHING NOTED. DENIES PAIN. ON TELE MONITORING SHOWS SR HR 80. PT WITH FISH AND APURVA MIDLINE, BOTH PATENT AND INTACT. ALL SAFETY MEASURES IMPLEMENTED PER PROTOCOL. CALL LIGHT WITHIN REACH. BED LOCKED IN LOWEST POSITION, SIDE RAILS UP X 2. BED ALARM ON.
[2020-11-03] MEDS: SIMVASTATIN 20 MG TABLET PO SCH (21:58)
[2020-11-03] MEDS: GUAIFENESIN/CODEINE 10 ML UDC PO PRN (22:34)
[2020-11-03] MEDS: LORAZEPAM 1 MG TABLET PO PRN (23:34)
--- NOTE | 2020-11-03 23:34 | NUR ---
RN NOTE PT REQUESTED ATIVAN TO HELP HER SLEEP. ATIVAN GIVEN ORDERED.
[2020-11-04] VITALS: BP 124/65
[2020-11-04 04:00] VITALS: BP 123/67
[2020-11-04 06:42] LABS: BASOPHILS % (AUTO) 0.1 % (0.0-2.0); EOSINOPHILS % (AUTO) 0.8 % (0.0-6.0); HEMATOCRIT 36 % (33-45); HEMOGLOBIN 11.6 g/dL (11.5-14.8); LYMPHOCYTES # (AUTO) 1.5 /CMM (0.8-4.8); LYMPHOCYTES % (AUTO) 12.5 % (20.0-44.0); MEAN CORPUSCULAR HGB CONC 32 g/dl (31.0-36.0); MEAN CORPUSCULAR VOLUME 84 fL (82-100); MONOCYTES # (AUTO) 0.3 /CMM (0.1-1.30); MONOCYTES % (AUTO) 2.8 % (2.0-12.0); NEUTROPHILS # (AUTO) 9.8 /CMM (1.8-8.9); NEUTROPHILS % (AUTO) 83.8 % (43.0-81.0); PLATELET COUNT (AUTO) 522 /CMM (150-450); RED BLOOD CELL COUNT(AUTO) 4.29 MIL/uL (4.0-5.2); WHITE BLOOD COUNT (AUTO) 11.7 K/uL (4.3-11.0)
--- NOTE | 2020-11-04 07:00 | NUR ---
RN NOTE PT REMAINS IN BED. CONTINUE ON HFNC 40L AND NRB 15L. ON FREQUENT VISUAL CHECK. PT DESATS TO 83-85 % WHEN USING BEDPAN AND COUGHING, RE-EDUCATED TO BREATHING TECHNIQUES AND ENCOURAGE TO STAY ON SIDE. NO RESP DISTRESS NOTED. PT ALERT AND ORIENTED X4, ABLE TO MAKE NEEDS KNOWN. NEEDS ATTENDED. FISH AND APURVA MIDLINE REMAIN INTACT. CALL LIGHT WITHIN REACH AT ALL TIMES. BED LOCKED IN LOWEST POSITION.
[2020-11-04 07:26] LABS: ALBUMIN 1.8 g/dL (3.4-5.0); BILIRUBIN,DIRECT 0.1 mg/dL (0.0-0.2); BILIRUBIN,TOTAL 0.3 mg/dL (0.2-1.0); CALCIUM, SERUM 8.8 mg/dL (8.5-10.1); CREATININE 0.7 mg/dL (0.6-1.3); TOTAL PROTEIN, SERUM 6.3 g/dL (6.4-8.2)
[2020-11-04 08:00] VITALS: BP 120/68
[2020-11-04] MEDS: LINAGLIPTIN 5 MG TABLET PO SCH (08:10)
[2020-11-04] MEDS: PROPRANOLOL HCL 10 MG TABLET PO SCH ×2 (08:16→21:15)
[2020-11-04] MEDS: DOXYCYCLINE HYCLATE (100 MG) 100 MG TABLET PO SCH ×2 (08:17→16:35)
[2020-11-04] MEDS: AMLODIPINE BESYLATE 5 MG TABLET PO SCH (08:17)
[2020-11-04] MEDS: APIXABAN 5 MG TABLET PO SCH ×2 (08:19→16:36)
[2020-11-04] MEDS: DEXAMETHASONE SOD PHOSPHATE 10 MG/ML VIAL IV SCH (08:20)
[2020-11-04] MEDS: GLUCERNA SHAKE 237 ML CAN PO SCH ×3 (08:20→16:36)
[2020-11-04] MEDS: BLOOD SUGAR DIAGNOSTIC 1 EACH STRIP IN SCH ×4 (08:33→21:33)
[2020-11-04] MEDS: CEFEPIME 2 GM in IV D5W 100 ML IV SCH ×2 (09:56→20:16)
[2020-11-04 11:57] LABS: C-REACTIVE PROTEIN 8.5 mg/dL (0.0-0.9)
[2020-11-04 12:00] VITALS: BP 115/60
[2020-11-04] MEDS: INSULIN REGULAR, HUMAN 100 UNIT/ML 3 ML VIAL SQ PRN ×3 (12:26→21:50)
--- NOTE | 2020-11-04 14:00 | NUR ---
LASIX GIVEN ORDERED, BP115/60
[2020-11-04 14:15] LABS: BAND % (MANUAL) 3 % (0.0-5.0); EOSINOPHILS % (MANUAL) 1 % (0-4); LYMPHOCYTES % (MANUAL) 7 % (16-48); MONOCYTES % (MANUAL) 5 % (0-11.0); NEUTROPHILS % (MANUAL) 84 (42-76)
[2020-11-04] MEDS: FUROSEMIDE 20 MG/2 ML VIAL IV SCH (14:26)
[2020-11-04] MEDS: REMDESIVIR (CHARGED) 100 MG in IV NS 0.9% 100 ML IV SCH (14:47)
[2020-11-04] MEDS: GUAIFENESIN/CODEINE 10 ML UDC PO PRN ×2 (15:44→21:50)
[2020-11-04 18:00] VITALS: BP 116/74
--- NOTE | 2020-11-04 19:25 | NUR ---
PT REMAINS IN BED, ON HIGH FLOW 40L/100%, WITH 15L NRB. PT SATS 89-94%. PER MD PARKER, TESSALON 200MG Q8 ORDERED ANTITUSSIVE TO GO ALONGSIDE ROBITUSSIN PRN. OXYGEN IMPROVED AFTER ROBITUSSIN ADMINISTRATION. PT HAD 3X VOIDS AND 1X BM THIS SHIFT. PT MIDLINE IV SITES REMAIN INTACT AND FLUSHED WELL. ALL SAFETY MEASURES IN PLACE. REPORT GIVEN TO ATD FOR MICK
--- NOTE | 2020-11-04 19:30 | NUR ---
RN OPENING NOTE RECEIVED PATIENT IN BED RESTING ALERT ORIENTED X4 VERBALLY RESPONSIVE BURUNDIAN SPEAKER ONLY ON HIGH FLOW OXYGEN FIO2:100% AND 15L NON REBREATHER MASK,O2:89-92%,MONITORING FOR COVID POSITIVE AND DROPLET/CONTACT ISOLATION,IV SITE IS ON LEFT UPPER ARM AND RIGHT UPPER ARM MID LINES INTACT PATENT CALL LIGHT WITHIN REACH,SAFETY MEASURE IMPLEMENT BED IN LOW POSITION AND LOCKED,CONTINUE TO MONITOR.
[2020-11-04 20:00] VITALS: BP 116/61
[2020-11-04] MEDS: BENZONATATE 100 MG CAPSULE PO SCH (21:15)
[2020-11-04] MEDS: SIMVASTATIN 20 MG TABLET PO SCH (21:23)
--- NOTE | 2020-11-04 22:03 | NUR ---
RN NOTE PATIENT REQUESTED COUGH SYRUP AFTER OPENED SHE CHANGED HER MIND CONTINUE TO MONITOR
[2020-11-05] VITALS: BP 115/59
[2020-11-05 04:00] VITALS: BP 108/59
[2020-11-05] MEDS: BENZONATATE 100 MG CAPSULE PO SCH ×3 (04:21→20:28)
[2020-11-05 06:28] LABS: BASOPHILS % (AUTO) 0.3 % (0.0-2.0); EOSINOPHILS % (AUTO) 1.4 % (0.0-6.0); HEMATOCRIT 38 % (33-45); HEMOGLOBIN 12.6 g/dL (11.5-14.8); LYMPHOCYTES # (AUTO) 1.4 /CMM (0.8-4.8); LYMPHOCYTES % (AUTO) 9.7 % (20.0-44.0); MEAN CORPUSCULAR HGB CONC 33 g/dl (31.0-36.0); MEAN CORPUSCULAR VOLUME 84 fL (82-100); MONOCYTES # (AUTO) 0.4 /CMM (0.1-1.30); MONOCYTES % (AUTO) 2.6 % (2.0-12.0); NEUTROPHILS # (AUTO) 12.1 /CMM (1.8-8.9); PLATELET COUNT (AUTO) 611 /CMM (150-450); RED BLOOD CELL COUNT(AUTO) 4.54 MIL/uL (4.0-5.2); WHITE BLOOD COUNT (AUTO) 14.1 K/uL (4.3-11.0)
--- NOTE | 2020-11-05 07:07 | NUR ---
RN CLOSING NOTE PATIENT REMAINS ON ALERT ORIENTED X4 VERBALLY RESPONSIVE POLISH SPEAKER,ON 40L HIGH FLOW OXYGEN AND 15L NON RE BREATHER MASK,O2:88-91% IV SITE IS ON LEFT UPPER ARM AND RIGHT UPPER ARM MIDLINES INTACT PATENT,ALL DUE MEDS GIVEN MD ORDERED,KEPT CLEAN AND DRY,KEPT CALL LIGHT WITHIN REACH,SAFETY MEASURE IMPLEMENTED,ENDORSE NEXT COMING SHIFT FOR CONTINUATION OF CARE.
[2020-11-05 07:08] LABS: BILIRUBIN,DIRECT 0.1 mg/dL (0.0-0.2); BILIRUBIN,TOTAL 0.3 mg/dL (0.2-1.0); CREATININE 0.7 mg/dL (0.6-1.3); MAGNESIUM 1.4 mg/dL (1.8-2.4); PHOSPHORUS 3.8 mg/dL (2.5-4.9); POTASSIUM 4.3 mmol/L (3.5-5.1); TOTAL PROTEIN, SERUM 6.5 g/dL (6.4-8.2)
[2020-11-05] MEDS: BLOOD SUGAR DIAGNOSTIC 1 EACH STRIP IN SCH ×4 (07:30→21:32)
--- NOTE | 2020-11-05 07:30 | NUR ---
RN OPENING NOTES PATIENT RESTING IN BED WITH HOB ELEVATED, A/O X2-3. ON NON REBREATHER, O2 SAT 195%.TELE MONITOR ON, CONTROLLED A-FIB. WITH GARCÍA CATH DRAINING YELLOW URINE TO GRAVITY. WITH IV ACCESS ON RIGHT HAND WITH D5 1/2 NS @ 90CC/HR, INFUSING WELL. BED LOCKED AND IN LOWEST POSITION. SIDE RAILS UP X2. CALL LIGHT WITHIN REACH. SAFETY MEASURES IN PLACE. WILL CONTINUE TO MONITOR.
[2020-11-05 08:00] VITALS: BP 108/59
[2020-11-05] MEDS: GLUCERNA SHAKE 237 ML CAN PO SCH ×3 (08:00→17:38)
[2020-11-05] MEDS: APIXABAN 5 MG TABLET PO SCH ×2 (09:55→17:41)
[2020-11-05] MEDS: FUROSEMIDE 20 MG/2 ML VIAL IV SCH (09:55)
[2020-11-05] MEDS: PROPRANOLOL HCL 10 MG TABLET PO SCH ×2 (09:56→20:31)
[2020-11-05] MEDS: AMLODIPINE BESYLATE 5 MG TABLET PO SCH (09:57)
[2020-11-05] MEDS: LINAGLIPTIN 5 MG TABLET PO SCH (09:57)
[2020-11-05] MEDS: DEXAMETHASONE SOD PHOSPHATE 10 MG/ML VIAL IV SCH (09:57)
[2020-11-05] MEDS: INSULIN REGULAR, HUMAN 100 UNIT/ML 3 ML VIAL SQ PRN ×4 (10:27→21:56)
[2020-11-05] MEDS: Magnesium 1GM/D5W 100ML PREMIX 100 ML IV SCH ×4 (11:28→14:26)
[2020-11-05 11:34] LABS: BAND % (MANUAL) 1 % (0.0-5.0); EOSINOPHILS % (MANUAL) 1 % (0-4); LYMPHOCYTES % (MANUAL) 6 % (16-48); MYELOCYTES % 2 % (0-0); NEUTROPHILS % (MANUAL) 90 (42-76)
[2020-11-05 12:00] VITALS: BP 115/55
[2020-11-05 12:07] LABS: *HIV-1 RNA BY PCR <20 copies/mL (.)
--- NOTE | 2020-11-05 12:30 | NUR ---
DOUBLE CHECK BLOOD W/ DIVINA REYES UNABLE TO OVERRIDE PER HUDSON Palacios FROM [facility] TO GIVE THE PLASMA.
--- NOTE | 2020-11-05 12:33 | NUR ---
VISUALLY CHECK DATA ON CONVALESCENT PLASMA AND CORRECT AND VERIFIED BY DIVINA REYES.
--- NOTE | 2020-11-05 12:40 | NUR ---
VERIFIED AND INITIATED CONVALESCENT PLASMA PER PROTOCOL WITH MJ (HUBER), VITAL SIGNS TAKEN : 98.6, 68, 22, 111/56.
--- NOTE | 2020-11-05 12:45 | NUR ---
VITAL SIGNS TAKEN: 98.1, 22, 69, 126/70. CONVALESCENT PLASMA RUNNING WELL.
--- NOTE | 2020-11-05 13:00 | NUR ---
VITAL SIGNS TAKEN:l 98.9, 26, 68, 117/62. CONVALESCENT PLASMA RUNNING WELL.
--- NOTE | 2020-11-05 13:30 | NUR ---
VITAL SIGNS TAKEN: 98.8, 68, 24, 119/58. CONVALESCENT PLASMA RUNNING WELL.
--- NOTE | 2020-11-05 14:30 | NUR ---
VITAL SIGNS TAKEN: 97.9, 64, 22, 105/52. CONVALESCENT PLASMA RUNNING WELL.
[2020-11-05] MEDS: REMDESIVIR (CHARGED) 100 MG in IV NS 0.9% 100 ML IV SCH (14:35)
--- NOTE | 2020-11-05 14:55 | NUR ---
CONVALESCENT PLASMA INFUSION COMPLETE. VITAL SIGNS TAKEN" 97.8, 70, 22, 118/56
[2020-11-05 16:00] VITALS: BP 115/55
--- NOTE | 2020-11-05 19:00 | NUR ---
RN CLOSING NOTES PATIENT REMAINS ON ALERT ORIENTED X4 VERBALLY RESPONSIVE ROMANIAN SPEAKER,ON 40L HIGH FLOW OXYGEN AND 15L NON RE BREATHER MASK,O2:88-91% IV SITE IS ON LEFT UPPER ARM AND RIGHT UPPER ARM MIDLINES INTACT PATENT,ALL DUE MEDS GIVEN MD ORDERED,KEPT CLEAN AND DRY,KEPT CALL LIGHT WITHIN REACH,SAFETY MEASURE IMPLEMENTED,ENDORSE NEXT COMING SHIFT FOR MICK.
--- NOTE | 2020-11-05 19:10 | NUR ---
RECEIVED PATIENT IN BED, A/OX3 HUNGARIAN SPEAKING WITH LITTLE IRISH BREATHING EVEN AND UNLABORED,ABLE TO VERBALIZED NEEDS ON NON - REBREATHER MASK AND HIGH FLOW NC, 40L, 100%FIO2, SPO2 IS 85-89%, , NORMAL SINUS RHYTHM ON TELE-MONITOR WITH HR 60-80S, APURVA AND FISH MIDLINES PATENT ,INTACT AND FLUSHED , SAFETY MEASURES IN PLACE, CALL LIGHT IN REACH, HOB ELEVATED, WILL CONT TO MONITOR .
[2020-11-05 20:00] VITALS: BP 106/58
[2020-11-05] MEDS: CEFEPIME 2 GM in IV D5W 100 ML IV SCH (20:02)
[2020-11-05] MEDS: DOXYCYCLINE 100 MG in IV D5W 100 ML IV SCH (20:29)
[2020-11-05] MEDS: SIMVASTATIN 20 MG TABLET PO SCH (21:24)
[2020-11-05] MEDS: LORAZEPAM 0.5 MG TABLET PO SCH (21:24)
--- NOTE | 2020-11-05 21:30 | NUR ---
REPORTED TO ALIYA NG COLLEGE OF EDUCATION DEAN ONCALL THAT PATIENT SPO2 IS ONLY ON 85-88% AND PT IS ALREADY ON 40L 100% FIO2 HIGH FLOW AND 15L NRM NO SOB COMPLAINED AND PT IS STILL A/O X3 , WITH ORDER TO KEEP MONITORING THE PT AND INFORM HERE IF THERES CHANGES ON MENTAL STATUS
[2020-11-06] VITALS: BP 97/57
[2020-11-06 04:00] VITALS: BP 109/60
[2020-11-06] MEDS: BENZONATATE 100 MG CAPSULE PO SCH ×3 (04:01→20:08)
[2020-11-06] MEDS: CEFEPIME 2 GM in IV D5W 100 ML IV SCH ×3 (04:01→20:06)
--- NOTE | 2020-11-06 06:54 | NUR ---
PT ON BED ASLEEP EASY TO WAKE UP A/O X3 STILL ON HIGH FLOW 40L 100% FIO2 AND NON REBREATHER MASK 15L WITH SPO2 89% NO DISTRESS NOTED NO PAIN COMPLAINED NO SIGNIFICANT CHANGES ON CONDITION NOTED ALL NEEDS ATTENDED BED ON LOWEST POSITION AND LOCKED SIDE RAILS UP X2 CALL LIGHT WITHIN REACH WILL ENDORSED TO AM SHIFT NURSE
[2020-11-06 06:58] LABS: BASOPHILS % (AUTO) 0.2 % (0.0-2.0); EOSINOPHILS % (AUTO) 1.2 % (0.0-6.0); HEMATOCRIT 38 % (33-45); HEMOGLOBIN 12.4 g/dL (11.5-14.8); LYMPHOCYTES # (AUTO) 1.1 /CMM (0.8-4.8); LYMPHOCYTES % (AUTO) 6.8 % (20.0-44.0); MEAN CORPUSCULAR HGB CONC 33 g/dl (31.0-36.0); MEAN CORPUSCULAR VOLUME 84 fL (82-100); MONOCYTES # (AUTO) 0.3 /CMM (0.1-1.30); MONOCYTES % (AUTO) 2.1 % (2.0-12.0); NEUTROPHILS # (AUTO) 14.6 /CMM (1.8-8.9); NEUTROPHILS % (AUTO) 89.7 % (43.0-81.0); PLATELET COUNT (AUTO) 533 /CMM (150-450); WHITE BLOOD COUNT (AUTO) 16.2 K/uL (4.3-11.0)
--- NOTE | 2020-11-06 07:25 | NUR ---
RN OPENING NOTE: PATIENT RECEIVED IN ROOM RESTING IN SEMI-FOWLERS POSITION. DENIES PAIN. PATIENT IS ON O2 THERAPY VIA HFNC 40 LPM 100% + NRB 15 LPM TOLERATING WELL. IV ACCESS MAINTAINED INTACT, SECURED AND FLUSHING WELL. ISOLATION PRECAUTIONS MAINTAINED. SAFETY MEASURES IMPLEMENTED, BED LOCKED IN LOWEST POSITION, SIDE RAILS UP, CALL LIGHT WITHIN REACH. WILL CONTINUE TO MONITOR PATIENT AND PROVIDE CARE THROUGHOUT SHIFT.
[2020-11-06] MEDS: BLOOD SUGAR DIAGNOSTIC 1 EACH STRIP IN SCH ×4 (07:30→21:08)
[2020-11-06 07:54] LABS: CALCIUM, SERUM 8.5 mg/dL (8.5-10.1); CREATININE 0.6 mg/dL (0.6-1.3); MAGNESIUM 1.8 mg/dL (1.8-2.4); PHOSPHORUS 3.3 mg/dL (2.5-4.9); POTASSIUM 4.1 mmol/L (3.5-5.1)
[2020-11-06 08:00] VITALS: BP 105/56
[2020-11-06] MEDS: GLUCERNA SHAKE 237 ML CAN PO SCH ×3 (08:00→17:35)
[2020-11-06] MEDS: AMLODIPINE BESYLATE 5 MG TABLET PO SCH (09:00)
[2020-11-06] MEDS: PROPRANOLOL HCL 10 MG TABLET PO SCH ×2 (09:00→21:08)
[2020-11-06] MEDS: LINAGLIPTIN 5 MG TABLET PO SCH (09:31)
[2020-11-06] MEDS: DEXAMETHASONE SOD PHOSPHATE 10 MG/ML VIAL IV SCH (09:32)
[2020-11-06] MEDS: FUROSEMIDE 20 MG/2 ML VIAL IV SCH (09:32)
[2020-11-06] MEDS: DOXYCYCLINE 100 MG in IV D5W 100 ML IV SCH ×2 (09:34→21:06)
[2020-11-06] MEDS: APIXABAN 5 MG TABLET PO SCH ×2 (09:58→16:39)
[2020-11-06] MEDS: INSULIN REGULAR, HUMAN 100 UNIT/ML 3 ML VIAL SQ PRN ×4 (09:59→21:17)
[2020-11-06] MEDS: HYDROCODONE/APAP 5/325MG TABLET PO PRN ×2 (10:48→20:08)
[2020-11-06 12:00] VITALS: BP 105/61
[2020-11-06 16:00] VITALS: BP 139/78
--- NOTE | 2020-11-06 19:20 | NUR ---
RN CLOSING NOTE: PATIENT IN ROOM RESTING IN SEMI-FOWLERS POSITION. DENIES PAIN. PATIENT IS ON O2 THERAPY VIA HFNC 40 LPM 100% + NRB 15 LPM TOLERATING WELL. IV ACCESS MAINTAINED INTACT, SECURED AND FLUSHING WELL. ISOLATION PRECAUTIONS MAINTAINED. SAFETY MEASURES IMPLEMENTED, BED LOCKED IN LOWEST POSITION, SIDE RAILS UP, CALL LIGHT WITHIN REACH. WILL ENDORSE CONTINUATION OF CARE TO UPCOMING SHIFT.
--- NOTE | 2020-11-06 19:59 | NUR ---
TELE-1/LAYER UP PT SEEN BY RESPIRATORY THERAPIST AT THIS TIME CURRENTLY SATURATING @91% WITH HIGH FLOW 40Lpm @100% FIO2 AND NRB @15L. PT POSITIONED IN LEFT LATERAL SIDE LYING POSITION. COMPLAINT OF PAIN. WILL MEDICATE ORDERED. WILL CONTINUE TO MONITOR CLOSELY.
--- NOTE | 2020-11-06 20:30 | NUR ---
TELE-1/LIFE INSURANCE SALESPERSON ASSISTED PT TO BEDSIDE COMMODE. PT VOIDED. PLACED BACK INTO BED. PT HAD COUGHING FIT, BUT SATURATION RETURNED TO 90% SPO2 AFTER REPOSITIONING. PT REMAINS ON LEFT LATERAL SIDE LYING POSITION. PT MEDICATED FOR COUGH AND PAIN. WILL CONTINUE TO MONITOR CLOSELY.
[2020-11-06] MEDS: LORAZEPAM 0.5 MG TABLET PO SCH (21:07)
[2020-11-06] MEDS: SIMVASTATIN 20 MG TABLET PO SCH (21:07)
--- NOTE | 2020-11-06 21:30 | NUR ---
TELE-1/CONVEYOR SYSTEM OPERATOR PT COMPLAINT OF 10/10 LEFT ARM PAIN. ALIYA NG ACNP CALLED AND STATUS UPDATE GIVEN. NEW ORDERS RECEIVED FOR DILAUDID 0.5MG IVP Q6H PRN AND TO STOP USING LEFT UPPER ARM MIDLINE. TRY TO USE RIGHT UPPER ARM MIDLINE. WILL CONTINUE TO MONITOR CLOSELY.
--- NOTE | 2020-11-06 21:55 | NUR ---
TELE-1/MANAGER CLINICAL PHARMACY CALLED DAUGHTER HEAVENLY AND GAVE STATUS UPDATE.
[2020-11-06] MEDS: IBUPROFEN 600 MG TABLET PO PRN (22:05)
--- NOTE | 2020-11-06 22:14 | NUR ---
TELE-1/BASKET WEAVER SPOKE WITH DR. CRUZ GAVE STATUS UPDATE. PER DR. CRUZ DO NOT GIVE DILAUDID AND DO NOT USE LEFT UPPER ARM MIDLINE. GIVE IBUPROFEN ORDERED AND PT TO HAVE VENOUS DUPLEX IMAGING STUDY OF LEFT UPPER EXTREMITY TO RULE OUT DVT. WILL CONTINUE TO MONITOR CLOSELY.
--- NOTE | 2020-11-06 22:15 | NUR ---
RN NOTES WENT TO CHECK ON PATIENT'S LEFT UPPER ARM. MIDLINE IN PLACE; NO TENDERNESS NOTED. NO REDNESS; SOFT TO TOUCH 2240 WITH ORDER TO D/C FISH MIDLINE; EXPLAINED TO PATIENT; REMOVED INTACT; NO BLEEDING NOTED; PRESSURE APPLIED X3 MINS. ALSO INFORMED PATIENT THAT ULTRASOUND WAS ORDERED FOR THE LEFT ARM. 2254 ALIYA NG NP CAME TO CHECK ON PATIENT. MADE AWARE OF FISH MIDLINE REMOVED PER ORDER; NO NEW ORDERS AT THIS TIME.
[2020-11-06] MEDS: BLOOD SUGAR DIAGNOSTIC 1 EACH STRIP VI SCH (22:20)
--- NOTE | 2020-11-06 22:21 | NUR ---
MED NOTE: 2229 NOT DONE BECAUSE I HAD ALREADY TAKEN POC READING BASED ON PREVIOUS SCHEDULE.
--- NOTE | 2020-11-06 22:24 | NUR ---
TELE-1/BULK SAUSAGE CASING TIER OFF PER DR. ANTHONY ABDI LEFT UPPER ARM MIDLINE.
[2020-11-06] MEDS ORDERED: DEXTROSE 50%-WATER 50 ML DISP.SYRIN IV PRN (22:30)
--- NOTE | 2020-11-06 22:41 | NUR ---
TELE-1/ELECTROMECHANICAL EQUIPMENT TESTER LEFT UPPER ARM MIDLINE DC'D BY BECKY MURCIA. PT TOLERATED WELL.
[2020-11-07] VITALS: BP 108/55
--- NOTE | 2020-11-07 | NUR ---
TELE-1/HAND SPRING FORMER PT RESTING WELL. SPO2 91% WILL CONTINUE TO MONITOR.
[2020-11-07 04:00] VITALS: BP 122/64
[2020-11-07] MEDS: CEFEPIME 2 GM in IV D5W 100 ML IV SCH ×3 (05:24→20:13)
[2020-11-07] MEDS: BENZONATATE 100 MG CAPSULE PO SCH ×3 (05:33→20:16)
--- NOTE | 2020-11-07 07:11 | NUR ---
TELE-1/TRADE PROMOTION ANALYST ORDER FOR LEFT UPPER EXTREMITY CANCELLED BY HORTENCIA BURGOS BECAUSE PT IS COVID POSITIVE. WILL ENDORSE TO AM SHIFT TO MAKE MD AWARE.
[2020-11-07 07:21] LABS: BASOPHILS # (AUTO) 0.1 /CMM (0.0-0.2); BASOPHILS % (AUTO) 0.3 % (0.0-2.0); EOSINOPHILS % (AUTO) 0.2 % (0.0-6.0); HEMATOCRIT 41 % (33-45); HEMOGLOBIN 13.2 g/dL (11.5-14.8); LYMPHOCYTES # (AUTO) 1.1 /CMM (0.8-4.8); MEAN CORPUSCULAR HGB CONC 32 g/dl (31.0-36.0); MEAN CORPUSCULAR VOLUME 85 fL (82-100); MONOCYTES # (AUTO) 0.4 /CMM (0.1-1.30); MONOCYTES % (AUTO) 1.7 % (2.0-12.0); NEUTROPHILS # (AUTO) 19.9 /CMM (1.8-8.9); NEUTROPHILS % (AUTO) 92.8 % (43.0-81.0); PLATELET COUNT (AUTO) 465 /CMM (150-450); WHITE BLOOD COUNT (AUTO) 21.4 K/uL (4.3-11.0)
--- NOTE | 2020-11-07 07:30 | NUR ---
REGULATORY AUDITOR NOTES PT IN BED, RESTING, ALERT AND ORIENTED, ABLE TO MAKE NEEDS KNOWN, DENIES PAIN, RESPIRATIONS STABLE, O2 SAT AT 92%, ASSISTED WITH TOILETING NEEDS, KEPT WARM AND COMFORTABLE IN BED, CALL LIGHT WITHIN REACH.
[2020-11-07 08:00] VITALS: BP 116/77
[2020-11-07 08:02] LABS: CALCIUM, SERUM 9.4 mg/dL (8.5-10.1); CREATININE 0.9 mg/dL (0.6-1.3); MAGNESIUM 1.7 mg/dL (1.8-2.4); POTASSIUM 4.9 mmol/L (3.5-5.1)
[2020-11-07] MEDS: DEXAMETHASONE SOD PHOSPHATE 10 MG/ML VIAL IV SCH (08:38)
[2020-11-07] MEDS: BLOOD SUGAR DIAGNOSTIC 1 EACH STRIP VI SCH ×4 (08:39→21:26)
[2020-11-07] MEDS: INSULIN REGULAR, HUMAN 100 UNIT/ML 3 ML VIAL SQ PRN ×2 (08:39→16:46)
[2020-11-07] MEDS: APIXABAN 5 MG TABLET PO SCH ×2 (08:39→16:19)
[2020-11-07] MEDS: DOXYCYCLINE 100 MG in IV D5W 100 ML IV SCH ×2 (08:40→20:13)
[2020-11-07] MEDS: LINAGLIPTIN 5 MG TABLET PO SCH (08:41)
[2020-11-07] MEDS: GLUCERNA SHAKE 237 ML CAN PO SCH ×3 (08:55→16:02)
[2020-11-07] MEDS: AMLODIPINE BESYLATE 5 MG TABLET PO SCH (09:00)
[2020-11-07] MEDS: FUROSEMIDE 20 MG/2 ML VIAL IV SCH (09:00)
[2020-11-07] MEDS: PROPRANOLOL HCL 10 MG TABLET PO SCH ×2 (09:00→20:15)
[2020-11-07] MEDS ORDERED: Magnesium 1GM/D5W 100ML PREMIX 100 ML IV SCH (10:30)
--- NOTE | 2020-11-07 10:36 | NUR ---
HEALTHCARE PROF NOTES PT SEEN AND EXAMINED BY DR. BHANDARI, ORDER RECEIVED FOR 1G MAGNESIUM IV, NOTED AND CARRIED OUT, PT'S O2 SAT BETWEEN 92-95% AT REST, CALL LIGHT WITHIN REACH.
[2020-11-07] MEDS: *INSULIN REGULAR(HUMULIN R)HUM 100 UNIT/ML VIAL SQ PRN ×2 (11:53→21:28)
[2020-11-07 12:00] VITALS: BP 126/61
[2020-11-07 16:00] VITALS: BP 114/70
--- NOTE | 2020-11-07 18:28 | NUR ---
SENIOR TELLER NOTES PT IN BED, AWAKE, ALERT AND ORIENTED, NO COMPLAINT AT THIS TIME, VISITED BY DAUGHTER, ISOLATION PRECAUTIONS OBSERVED, DR. PARKER INFORMED OF LATEST CHEST XRAY RESULT, PM MEDS GIVEN, ASSISTED WITH TOILETING NEEDS, CALL LIGHT WITHIN REACH.
--- NOTE | 2020-11-07 19:01 | NUR ---
CLEANER WALL NOTES ASSISTED PT TO BEDSIDE COMMODE, TOLERATED WELL, RECEIVED MINIMUM ASSISTANCE IN GETTING BACK TO BED, O2 SAT WENT DOWN TO 88% AFTER TRANSFERING TO THE COMMODE BUT O2 SAT STEADILY IMPROVED AFTER GETTING BACK TO BED, WENT UP TO 93%, UNABLE TO DO NO.2 BUT ABLE TO DO NO.1, PERINEAL CARE PROVIDED, ALL NEEDS ATTENDED.
--- NOTE | 2020-11-07 19:30 | NUR ---
"RN OPENING NOTES: RECEIVED PT A/OX 4 IN BED SLEEPING COMFORTABLY. PATIENT IN NO S/SX OF ACUTE DISTRESS AT THIS TIME BUT NOTED SOME INTERMITTENT COUGHING EPISODES. CURRENTLY, PATIENT IS ON HIGH FLOW 40L|100% AND NRB MASK @15L|100%; TOLERATING WELL AND 02 SAT IS AT 90% AT THE TIME OF RECEIVED. PATIENT ON TELE MONITORING READING SINUS RHYTHM HR IS @70s AT THE TIME OF RECEIVED. PATIENT ON CONSISTENT CARB DIET; TOLERATES WELL. NOTED IV SITE ON R UA MIDLINE ;PATENT, INTACT AND FLUSHING WELL; NO S/S OF INFECTION OR INFILTRATION. SAFETY MEASURES HAVE BEEN PROVIDED AND IMPLEMENTED. PATIENT BED ALARM IS ON. HEAD OF BED ELEVATED. BED IS LOCKED, IN LOWEST POSITION AND SIDE RAILS UP. CALL LIGHT WITHIN REACH OF THE PATIENT. APPLICABLE ISOLATION PRECAUTIONS IN PLACE. WILL CONTINUE TO MONITOR AND REASSESS FOR ANY CHANGES AND WILL CARRY OUT ANY ONGOING AND ACTIVE MD ORDER."
[2020-11-07 20:00] VITALS: BP 113/74
[2020-11-07] MEDS: SIMVASTATIN 20 MG TABLET PO SCH (21:01)
[2020-11-07] MEDS: LORAZEPAM 0.5 MG TABLET PO SCH (21:01)
--- NOTE | 2020-11-07 23:00 | NUR ---
RN NOTES PATIENT REMAINS IN NO ACUTE RESPIRATORY DISTRESS AT THIS TIME, NO CHANGES TO CONDITION/STATUS. BUMPER MACHINE OPERATOR WELL AWARE. WILL CONTINUE TO MONITOR AND REASSESS FOR ANY CHANGES THROUGHOUT THE SHIFT
[2020-11-07] MEDS: HYDROCODONE/APAP 5/325MG TABLET PO PRN (23:04)
[2020-11-08] VITALS: BP 117/66
--- NOTE | 2020-11-08 03:52 | NUR ---
RN NOTES NO CHANGES IN PATIENT CONDITION AT THIS TIME PATIENT VITALS STABLE, NO SIGNS OF ACUTE RESPIRATORY DISTRESS, O2 SAT IS AT 92% AT THIS TIME. PATIENT STILL IN BED SLEEPING COMFORTABLY. NO COMPLAINTS OF PAIN OR ANY DISCOMFORT AT THIS TIME. WILL CONTINUE TO MONITOR AND REASSESS FOR ANY CHANGES THROUGHOUT THE SHIFT.
[2020-11-08 04:00] VITALS: BP 105/66
[2020-11-08] MEDS: CEFEPIME 2 GM in IV D5W 100 ML IV SCH ×3 (04:01→21:06)
[2020-11-08] MEDS: BENZONATATE 100 MG CAPSULE PO SCH ×3 (04:01→20:38)
[2020-11-08 06:36] LABS: BASOPHILS # (AUTO) 0.1 /CMM (0.0-0.2); BASOPHILS % (AUTO) 0.2 % (0.0-2.0); EOSINOPHILS % (AUTO) 0.9 % (0.0-6.0); HEMATOCRIT 40 % (33-45); HEMOGLOBIN 13.1 g/dL (11.5-14.8); LYMPHOCYTES # (AUTO) 1.1 /CMM (0.8-4.8); LYMPHOCYTES % (AUTO) 4.6 % (20.0-44.0); MEAN CORPUSCULAR HGB CONC 33 g/dl (31.0-36.0); MEAN CORPUSCULAR VOLUME 84 fL (82-100); MONOCYTES # (AUTO) 0.6 /CMM (0.1-1.30); MONOCYTES % (AUTO) 2.5 % (2.0-12.0); NEUTROPHILS # (AUTO) 22.2 /CMM (1.8-8.9); NEUTROPHILS % (AUTO) 91.8 % (43.0-81.0); PLATELET COUNT (AUTO) 356 /CMM (150-450); RED BLOOD CELL COUNT(AUTO) 4.75 MIL/uL (4.0-5.2); WHITE BLOOD COUNT (AUTO) 24.2 K/uL (4.3-11.0)
--- NOTE | 2020-11-08 06:40 | NUR ---
RN CLOSING NOTE: PATIENT REMAINS IN ROOM IN NO SIGNS OF RESPIRATORY DISTRESS, PATIENT STILL ON HIGH FLOW 40L 100% AND 15L 100% VIA NRB MASK TOLERATTING WELL SATURATING @ 93% 02. SAFETY MEASURES IMPLEMENTED, BED IN LOWEST POSITION, LOCKED, SIDE RAILS UP, CALL LIGHT WITHIN REACH. ALL NEEDS AND ORDERS ADDRESSED DURING THE SHIFT. IV ACCESS MAINTAINED INTACT, SECURED AND FLUSHING WELL. ALL DUE MEDS GIVEN ORDERED & SCHEDULED ; PATIENT TOLERATED WELL. PATIENT KEPT CLEAN AND COMFORTABLE WITHIN THE SHIFT. PATIENT ENDORSED TO INCOMING SHIFT RN WITH STABLE VITAL SIGN AND FOR CONTINUITY OF CARE, WILL ALSO MENTIONED TO INCOMING RN TO CLOSELY MONITOR O2 SAT PT HAD EPISODES OF LOW O2 SAT BELOW 89% AND TO DO REGULAR TURNING SIDE TO SIDE TO PROMOTE BETTER VENTILATION AND OXYGENATION. .
--- NOTE | 2020-11-08 07:30 | NUR ---
RN OPENING NOTES PATIENT PRESENT IN BED, A/OX4, ON HIGH FLOW AND NON-REBREATHER MASK ON MAX SETTINGS, SPO2 IS 92-94% AT THIS TIME, NO SOB, RESPIRATIONS EVEN AND UNLABORED, DENIES PAIN OR DISCOMFORT, NSR ON TELE-MONITOR, ASSISTED WITH REPOSITIONING, IV LINE (MIDLINE) ON R UA PATENT AND INTACT, SAFETY MEASURES IMPLEMENTED, CALL LIGHT IN REACH, HOB ELEVATED, WILL CONT TO MONITOR
[2020-11-08 07:34] LABS: CALCIUM, SERUM 8.9 mg/dL (8.5-10.1); CREATININE 0.7 mg/dL (0.6-1.3); MAGNESIUM 1.7 mg/dL (1.8-2.4); PHOSPHORUS 3.3 mg/dL (2.5-4.9); POTASSIUM 4.9 mmol/L (3.5-5.1)
[2020-11-08 08:00] VITALS: BP 119/60
[2020-11-08] MEDS: BLOOD SUGAR DIAGNOSTIC 1 EACH STRIP VI SCH ×4 (08:04→22:08)
[2020-11-08] MEDS: GLUCERNA SHAKE 237 ML CAN PO SCH ×3 (08:46→17:34)
[2020-11-08] MEDS: INSULIN REGULAR, HUMAN 100 UNIT/ML 3 ML VIAL SQ PRN ×3 (08:49→18:01)
[2020-11-08] MEDS: DEXAMETHASONE SOD PHOSPHATE 10 MG/ML VIAL IV SCH (08:50)
[2020-11-08] MEDS: APIXABAN 5 MG TABLET PO SCH ×2 (08:50→17:58)
[2020-11-08] MEDS: FUROSEMIDE 20 MG/2 ML VIAL IV SCH (08:50)
[2020-11-08] MEDS: LINAGLIPTIN 5 MG TABLET PO SCH (08:51)
[2020-11-08] MEDS: PROPRANOLOL HCL 10 MG TABLET PO SCH ×2 (08:51→21:17)
[2020-11-08] MEDS: AMLODIPINE BESYLATE 5 MG TABLET PO SCH (08:52)
[2020-11-08] MEDS: DOXYCYCLINE 100 MG in IV D5W 100 ML IV SCH ×2 (08:53→21:51)
[2020-11-08] MEDS: Magnesium 1GM/D5W 100ML PREMIX 100 ML IV SCH ×2 (10:27→11:31)
[2020-11-08 12:00] VITALS: BP 105/74
[2020-11-08] MEDS: IBUPROFEN 600 MG TABLET PO PRN (12:00)
[2020-11-08 16:00] VITALS: BP 112/63
--- NOTE | 2020-11-08 16:30 | NUR ---
DC NON REBREATHER MASK, SPO2 IS 91%, EQUAL RESPIRATIONS, NO DISTRESS, CONT TO MONITOR
--- NOTE | 2020-11-08 18:53 | NUR ---
RN CLOSING NOTES PATIENT REMAINS IN BED, RESTING COMFORTABLY, REPOSITIONED DURING THE DAY, EDUCATION PROVIDED, MEDICATIONS GIVEN, COMFORT NEEDS ATTENDED, WILL ENDORSE TO INCOMING SHIFT RN FOR MICK
[2020-11-08 20:00] VITALS: BP 122/73
--- NOTE | 2020-11-08 20:00 | NUR ---
RN NOTE RECEIVED PT IN BED, A/A/O X3. PT IS ON HIGH FLOW 40 L SATING SATING 92%.ON TELE MONITOR SHOWING SR WITH HR IN 70s. SAFETY MEASURES IN PLACE.
[2020-11-08] MEDS: GUAIFENESIN/CODEINE 10 ML UDC PO PRN ×2 (20:24→20:30)
--- NOTE | 2020-11-08 20:34 | NUR ---
ROBITUSSINE SYRUP NOT GIVEN. PT REFUSED. PT INITIALLY REQUESTED FOR IT BUT THEN CHANGED HER MIND. 10 ML ROBITUSSINE WASTED WITH JULISSA (DIVINA).
[2020-11-08] MEDS: SIMVASTATIN 20 MG TABLET PO SCH (21:16)
[2020-11-08] MEDS: LORAZEPAM 0.5 MG TABLET PO SCH (22:08)
[2020-11-08] MEDS: *INSULIN REGULAR(HUMULIN R)HUM 100 UNIT/ML VIAL SQ PRN (22:19)
[2020-11-09] VITALS (7 sets, daily range): BP systolic 102–130; BP diastolic 54–67
[2020-11-09] MEDS: CEFEPIME 2 GM in IV D5W 100 ML IV SCH ×3 (05:28→21:29)
[2020-11-09] MEDS: BENZONATATE 100 MG CAPSULE PO SCH ×3 (05:28→21:49)
[2020-11-09 07:04] LABS: BASOPHILS # (AUTO) 0.1 /CMM (0.0-0.2); BASOPHILS % (AUTO) 0.4 % (0.0-2.0); EOSINOPHILS % (AUTO) 0.4 % (0.0-6.0); HEMATOCRIT 40 % (33-45); LYMPHOCYTES # (AUTO) 1.3 /CMM (0.8-4.8); LYMPHOCYTES % (AUTO) 4.5 % (20.0-44.0); MEAN CORPUSCULAR HGB CONC 32 g/dl (31.0-36.0); MEAN CORPUSCULAR VOLUME 84 fL (82-100); MONOCYTES # (AUTO) 0.4 /CMM (0.1-1.30); MONOCYTES % (AUTO) 1.5 % (2.0-12.0); NEUTROPHILS # (AUTO) 27.2 /CMM (1.8-8.9); NEUTROPHILS % (AUTO) 93.2 % (43.0-81.0); PLATELET COUNT (AUTO) 287 /CMM (150-450); WHITE BLOOD COUNT (AUTO) 29.2 K/uL (4.3-11.0)
--- NOTE | 2020-11-09 07:25 | NUR ---
RN NOTE NO ACUTE CHANGES. PT REMAINED STABLE REPORT GIVEN TO INCOMING SHIFT FOR MICK.
--- NOTE | 2020-11-09 07:39 | NUR ---
FACER OPERATOR NOTE PATIENT IN BED ALERT ORIENTED, ON HIGH FLOW OF O2 SATURATION 91% AT THIS TIME,ON TELE MONITOR SR HR 72, RT UPPER ARM MID LINE IN PLACE AND FLUSHED WELL , ALL NEEDS ATTENDED, WITH SLIGHT SOB NOTED AT THIS TIME, BED IN LOWEST AND LOCKED POSITION , PLAN OF CARE DISCUSSED WITH PATIENT WILL CONT TO MONITOR CLOSELY , CALL LIGHT WITHIN REACH
[2020-11-09 07:55] LABS: CALCIUM, SERUM 8.9 mg/dL (8.5-10.1); CREATININE 0.7 mg/dL (0.6-1.3); PHOSPHORUS 3.4 mg/dL (2.5-4.9); POTASSIUM 4.4 mmol/L (3.5-5.1)
[2020-11-09] MEDS: INSULIN REGULAR, HUMAN 100 UNIT/ML 3 ML VIAL SQ PRN ×3 (07:59→17:43)
[2020-11-09] MEDS: GLUCERNA SHAKE 237 ML CAN PO SCH ×3 (08:00→16:38)
[2020-11-09] MEDS: BLOOD SUGAR DIAGNOSTIC 1 EACH STRIP VI SCH ×4 (08:05→22:10)
[2020-11-09] MEDS: LINAGLIPTIN 5 MG TABLET PO SCH (08:45)
[2020-11-09] MEDS: FUROSEMIDE 20 MG/2 ML VIAL IV SCH (08:45)
[2020-11-09] MEDS: PROPRANOLOL HCL 10 MG TABLET PO SCH ×2 (08:46→21:50)
[2020-11-09] MEDS: AMLODIPINE BESYLATE 5 MG TABLET PO SCH (08:47)
[2020-11-09] MEDS: GUAIFENESIN/CODEINE 10 ML UDC PO PRN ×2 (08:47→16:37)
[2020-11-09] MEDS: DOXYCYCLINE 100 MG in IV D5W 100 ML IV SCH ×2 (08:47→22:07)
[2020-11-09] MEDS: APIXABAN 5 MG TABLET PO SCH ×2 (08:49→16:38)
[2020-11-09] MEDS: DEXAMETHASONE SOD PHOSPHATE 10 MG/ML VIAL IV SCH (09:09)
--- NOTE | 2020-11-09 09:39 | NUR ---
SUPERVISOR ORDER TAKERS NOTE ROBITUSSIN PO GIVEN FOR COUGH RT SOULEYMANE CALDERA BEDSIDE AWARE THAT WBC TODAY 29.2 ON ATB
--- NOTE | 2020-11-09 10:15 | NUR ---
telecommunications repairer note placed side position refused on prone position will monitor
--- NOTE | 2020-11-09 12:34 | NUR ---
television analyzer note assisted to bsc, able to make bm, keep clean dry will monitor
--- NOTE | 2020-11-09 13:28 | NUR ---
PRACTICAL NURSING INSTRUCTOR NOTE DR ZHANG CALLED ,UPDATED PATIENT CONDITION GIVE ODDER TO START TOMORROW DEXAMETHASONE 4 MG PO FOR 3 DAYS
--- NOTE | 2020-11-09 16:41 | NUR ---
METALLURGIST PROCESS NOTE C\O COUGH ROBITUSSIN PO GIVEN ALSO PER DR ZHANG FIO2 CHANGE TO 90% RT AT BEDSIDE SATURATION 92% WILL MONITOR
--- NOTE | 2020-11-09 18:07 | NUR ---
TUBE BALANCER NOTE KEEP PATIENT ON SIDE ,SATURATION 95% AT THIS TIME, REFUSED TO HAVE DINNER , ALL NEEDS ATTENDED WILL CONT TO MONITOR CALL LIGHT WITHIN REACH
--- NOTE | 2020-11-09 20:00 | NUR ---
RN NOTE RECEIVED PT IN BED A/A/O X3. ON HIGH FLOW 40 L FIO2 90 SATING 92%. PT HAS UNLABORED BREATHING , TELE MONITOR SHOWING SR WITH HR IN 80s.SAFETY MEASURES IN PLACE.
[2020-11-09] MEDS: LORAZEPAM 0.5 MG TABLET PO SCH (22:09)
[2020-11-09] MEDS: SIMVASTATIN 20 MG TABLET PO SCH (22:09)
[2020-11-09] MEDS: *INSULIN REGULAR(HUMULIN R)HUM 100 UNIT/ML VIAL SQ PRN (22:17)
[2020-11-09] MEDS: ACETAMINOPHEN 325 MG TABLET PO PRN (23:25)
[2020-11-10] VITALS (8 sets, daily range): BP systolic 109–119; BP diastolic 56–68
[2020-11-10] MEDS: IBUPROFEN 600 MG TABLET PO PRN ×2 (00:32→09:53)
[2020-11-10] MEDS: CEFEPIME 2 GM in IV D5W 100 ML IV SCH ×3 (05:21→20:06)
[2020-11-10] MEDS: BENZONATATE 100 MG CAPSULE PO SCH ×3 (05:21→20:36)
[2020-11-10 07:08] LABS: BASOPHILS % (AUTO) 0.2 % (0.0-2.0); EOSINOPHILS % (AUTO) 0.3 % (0.0-6.0); HEMATOCRIT 37 % (33-45); HEMOGLOBIN 11.9 g/dL (11.5-14.8); LYMPHOCYTES # (AUTO) 1.2 /CMM (0.8-4.8); MEAN CORPUSCULAR HGB CONC 32 g/dl (31.0-36.0); MEAN CORPUSCULAR VOLUME 85 fL (82-100); MONOCYTES # (AUTO) 0.8 /CMM (0.1-1.30); MONOCYTES % (AUTO) 3.5 % (2.0-12.0); NEUTROPHILS # (AUTO) 21.9 /CMM (1.8-8.9); PLATELET COUNT (AUTO) 236 /CMM (150-450); RED BLOOD CELL COUNT(AUTO) 4.36 MIL/uL (4.0-5.2)
--- NOTE | 2020-11-10 07:17 | NUR ---
MS/RN OPENING NOTE RECEIVED PATIENT FROM TREATING PLANT PUMPER NURSE PATIENT A/O X4. PATIENT IN BED ASLEEP, EASILY WOKEN UP. NO ACUTE DISTRESS NOTED. ALL SAFETY MEASURES IN PLACE WILL CONTINUE TO MONITOR AND ENSURE SAFETY.
[2020-11-10 07:25] LABS: CALCIUM, SERUM 8.8 mg/dL (8.5-10.1); CREATININE 1.1 mg/dL (0.6-1.3); MAGNESIUM 1.8 mg/dL (1.8-2.4); PHOSPHORUS 3.5 mg/dL (2.5-4.9); POTASSIUM 4.8 mmol/L (3.5-5.1)
--- NOTE | 2020-11-10 07:29 | NUR ---
RN NOTE NO ACUTE CHANGES DURING MY SHIFT, REPORT GIVEN TO INCOMUNG SHIFT FOR MICK.
[2020-11-10] MEDS: BLOOD SUGAR DIAGNOSTIC 1 EACH STRIP VI SCH ×4 (07:39→22:11)
[2020-11-10] MEDS: INSULIN REGULAR, HUMAN 100 UNIT/ML 3 ML VIAL SQ PRN ×4 (07:46→22:14)
[2020-11-10] MEDS: GLUCERNA SHAKE 237 ML CAN PO SCH ×3 (08:30→17:44)
[2020-11-10] MEDS: FUROSEMIDE 20 MG/2 ML VIAL IV SCH (08:31)
[2020-11-10] MEDS: LINAGLIPTIN 5 MG TABLET PO SCH (08:31)
[2020-11-10] MEDS: DEXAMETHASONE 4 MG TABLET PO SCH (08:31)
[2020-11-10] MEDS: PROPRANOLOL HCL 10 MG TABLET PO SCH ×2 (08:33→20:36)
[2020-11-10] MEDS: AMLODIPINE BESYLATE 5 MG TABLET PO SCH (08:34)
[2020-11-10] MEDS: APIXABAN 5 MG TABLET PO SCH ×2 (08:36→17:46)
[2020-11-10] MEDS: DOXYCYCLINE 100 MG in IV D5W 100 ML IV SCH ×2 (08:40→20:47)
[2020-11-10 13:28] LABS: BAND % (MANUAL) 2 % (0.0-5.0); EOSINOPHILS % (MANUAL) 2 % (0-4); LYMPHOCYTES % (MANUAL) 4 % (16-48); MONOCYTES % (MANUAL) 3 % (0-11.0); NEUTROPHILS % (MANUAL) 89 (42-76)
[2020-11-10] MEDS: METFORMIN 500 MG TABLET PO SCH (17:45)
--- NOTE | 2020-11-10 19:10 | NUR ---
RN OPENING NOTE, RECEIVED PATIENT IN BED RESTING ALERT ORIENTED X4 VERBALLY RESPONSIVE ABLE TO MAKE NEEDS KNOWN,MONITOR FOR COVID POSITIVE AND DROPLET/CONTACT ISOLATION,ON HIGH FLOW OXYGEN 40L FIO2:80% O2:94-95%N IV SITE IS ON RIGHT UPPER ARM MIDLINE INTACT PATENT,CONTINENT TO BOWEL/BLADDER,CALL LIGHT WITHIN REACH,SAFETY MEASURE IMPLEMENT,CONTINUE TO MONITOR.
--- NOTE | 2020-11-10 19:43 | NUR ---
MS/RN CLOSING NOTE PATIENT A/O X4. PATIENT AWAKE IN BED. NO ACUTE DISTRESS NOTED. ALL NEEDS MET THROUGHOUT THE SHIFT. ALL SAFETY MEASURES IN PLACE WILL ENDORSE TO PRESSURE SEALER AND TESTER NURSE.
[2020-11-10] MEDS: LORAZEPAM 0.5 MG TABLET PO SCH (21:37)
[2020-11-10] MEDS: SIMVASTATIN 20 MG TABLET PO SCH (21:37)
[2020-11-11] VITALS: BP 122/64
[2020-11-11 04:00] VITALS: BP 121/69
[2020-11-11] MEDS: CEFEPIME 2 GM in IV D5W 100 ML IV SCH (04:11)
[2020-11-11] MEDS: BENZONATATE 100 MG CAPSULE PO SCH ×3 (04:18→20:55)
--- NOTE | 2020-11-11 06:30 | NUR ---
RN CLOSING NOTE PATIENT REMAINS ON ALERT ORIENTED X4 VERBALLY RESPONSIVE ON HIGH FLOW OXYGEN 40L FIO2:80% O2:95% IV SITE IS ON RIGHT UPPER ARM INTACT PATENT ALL DUE MEDS GIVEN MD ORDERED KEPT CLEAN AND DRY ALL THE TIME,KEPT CALL LIGHT WITHIN REACH,ENDORSE NEXT COMING SHIFT FOR CONTINUATION OF CARE.
[2020-11-11 06:50] LABS: CALCIUM, SERUM 9.5 mg/dL (8.5-10.1); CREATININE 0.7 mg/dL (0.6-1.3); MAGNESIUM 1.7 mg/dL (1.8-2.4); PHOSPHORUS 3.2 mg/dL (2.5-4.9); POTASSIUM 4.9 mmol/L (3.5-5.1); THYROID STIMULATING HORMONE 0.742 uIU/mL (0.358-3.74); URIC ACID 3.4 mg/dL (2.6-7.2)
--- NOTE | 2020-11-11 07:25 | NUR ---
MS/RN OPENING NOTE RECEIVED PATIENT FROM FOOD AND BEVERAGE SERVICE MANAGER NURSE PATIENT IS AWAKE IN BED A/O X4. DENIES ANY PAIN AT THIS TIME. NO ACUTE DISTRESS NOTED. HIFLO OXYGEN 40L AT FIO2 80% VIA NASAL CANNULA TOLERATING WELL, NO SOB NOTED. SAFETY MEASURES IN PLACE BED LOCKED AND IN LOWEST POSITION, CALL LIGHT WITHIN REACH. WILL CONTINUE TO MONITOR AND ENSURE SAFETY.
[2020-11-11] MEDS: GLUCERNA SHAKE 237 ML CAN PO SCH ×3 (07:58→16:09)
[2020-11-11 08:00] VITALS: BP_SYST 112; BP_DIAS 65; BP_DIAS 67
[2020-11-11] MEDS: BLOOD SUGAR DIAGNOSTIC 1 EACH STRIP VI SCH ×4 (08:10→21:34)
[2020-11-11] MEDS: DOXYCYCLINE 100 MG in IV D5W 100 ML IV SCH (08:33)
[2020-11-11] MEDS: PROPRANOLOL HCL 10 MG TABLET PO SCH ×2 (08:35→20:56)
[2020-11-11] MEDS: DEXAMETHASONE 4 MG TABLET PO SCH (08:35)
[2020-11-11] MEDS: LINAGLIPTIN 5 MG TABLET PO SCH (08:35)
[2020-11-11] MEDS: METFORMIN 500 MG TABLET PO SCH ×2 (08:36→16:09)
[2020-11-11] MEDS: APIXABAN 5 MG TABLET PO SCH ×2 (08:38→16:10)
[2020-11-11] MEDS: AMLODIPINE BESYLATE 5 MG TABLET PO SCH (08:45)
[2020-11-11] MEDS ORDERED: Magnesium 1GM/D5W 100ML PREMIX 100 ML IV SCH (10:30)
--- NOTE | 2020-11-11 10:33 | NUR ---
MS/RN NOTE COVID TEST WAS PERFORMED AND RETURNED TO LAB. AWAITING FOR RESULTS.
--- NOTE | 2020-11-11 11:37 | NUR ---
MS/RN NOTE RT CARRIED OUT ORDERS FOR FIO2 CHANGE TO 60% PATIENT TOLERATING WELL AND O2 SAT READING 92%. WILL CONTINUE TO MONITOR.
[2020-11-11 12:03] VITALS: BP 108/69
[2020-11-11] MEDS: INSULIN REGULAR, HUMAN 100 UNIT/ML 3 ML VIAL SQ PRN ×3 (12:29→21:40)
[2020-11-11] MEDS: ACETAMINOPHEN 325 MG TABLET PO PRN (12:34)
[2020-11-11 16:00] VITALS: BP 113/69
--- NOTE | 2020-11-11 18:36 | NUR ---
MS/RN CLOSING NOTE PATIENT IS AWAKE IN BED A/O X4. DENIES ANY PAIN AT THIS TIME. NO ACUTE DISTRESS NOTED. HIFLO OXYGEN 40L AT FIO2 60% VIA NASAL CANNULA TOLERATING WELL, NO SOB NOTED. ALL NEEDS MET THROUGHOUT THE SHIFT. SAFETY MEASURES IN PLACE BED LOCKED AND IN LOWEST POSITION, CALL LIGHT WITHIN REACH. WILL ENDORSE TO TELEPHONE ADVICE NURSE NURSE.
--- NOTE | 2020-11-11 19:10 | NUR ---
RN OPENING NOTE, RECEIVED PATIENT IN BED RESTING ALERT ORIENTED X4 VERBALLY RESPONSIVE ABLE TO MAKE NEEDS KNOWN,MONITOR FOR COVID POSITIVE AND DROPLET/CONTACT ISOLATION,ON HIGH FLOW OXYGEN 40L FIO2:60% O2:91-92 % IV SITE IS ON RIGHT UPPER ARM MIDLINE INTACT PATENT,CONTINENT TO BOWEL/BLADDER,CALL LIGHT WITHIN REACH,SAFETY MEASURE IMPLEMENT,BED IN LOW POSITION AND LOCKED,CONTINUE TO MONITOR.
[2020-11-11 20:00] VITALS: BP 121/61
[2020-11-11] MEDS: LORAZEPAM 0.5 MG TABLET PO SCH (21:00)
[2020-11-11] MEDS: SIMVASTATIN 20 MG TABLET PO SCH (21:00)
[2020-11-12] VITALS: BP 118/66
[2020-11-12 04:00] VITALS: BP 159/72
[2020-11-12] MEDS: BENZONATATE 100 MG CAPSULE PO SCH ×3 (04:06→20:38)
[2020-11-12 06:55] LABS: BASOPHILS # (AUTO) 0.1 /CMM (0.0-0.2); BASOPHILS % (AUTO) 0.2 % (0.0-2.0); EOSINOPHILS % (AUTO) 0.3 % (0.0-6.0); HEMATOCRIT 37 % (33-45); LYMPHOCYTES # (AUTO) 1.6 /CMM (0.8-4.8); LYMPHOCYTES % (AUTO) 6.8 % (20.0-44.0); MEAN CORPUSCULAR HGB CONC 33 g/dl (31.0-36.0); MEAN CORPUSCULAR VOLUME 84 fL (82-100); MONOCYTES # (AUTO) 0.8 /CMM (0.1-1.30); MONOCYTES % (AUTO) 3.6 % (2.0-12.0); NEUTROPHILS # (AUTO) 20.5 /CMM (1.8-8.9); NEUTROPHILS % (AUTO) 89.1 % (43.0-81.0); PLATELET COUNT (AUTO) 198 /CMM (150-450)
--- NOTE | 2020-11-12 07:22 | NUR ---
RN CLOSING NOTE PATIENT REMAINS ON ALERT ORIENTED X4 VERBALLY RESPONSIVE,NO SOB NOT ACUTE DISTRESS NOTED,ON HIGH FLOW OXYGEN 40L AND FIO2:60%,IV SITE IS ON RIGHT UPPER ARM MID LINE INTACT PATENT,ALL DUE MEDS GIVEN MD ORDERED,KEPT CLEAN AND DRY ALL THE TIME,KEPT COMFORTABLE,KEPT CALL LIGHT WITHIN REACH,ENDORSE NEXT COMING SHIFT FOR CONTINUATION OF CARE.
[2020-11-12] MEDS: BLOOD SUGAR DIAGNOSTIC 1 EACH STRIP VI SCH ×4 (07:30→21:40)
--- NOTE | 2020-11-12 07:30 | NUR ---
ms rn received on bed, awake,alert,oriented x4,not in any form of distress, respirations even and unlabored,no sob noted, denies pain at this time,all needs attended.
[2020-11-12 07:36] LABS: CALCIUM, SERUM 8.8 mg/dL (8.5-10.1); CREATININE 0.6 mg/dL (0.6-1.3); MAGNESIUM 1.7 mg/dL (1.8-2.4); PHOSPHORUS 3.1 mg/dL (2.5-4.9); POTASSIUM 4.6 mmol/L (3.5-5.1)
[2020-11-12 08:00] VITALS: BP 123/65
[2020-11-12] MEDS: GLUCERNA SHAKE 237 ML CAN PO SCH ×3 (08:00→17:46)
[2020-11-12] MEDS: PROPRANOLOL HCL 10 MG TABLET PO SCH ×2 (08:49→21:13)
[2020-11-12] MEDS: LINAGLIPTIN 5 MG TABLET PO SCH (08:50)
[2020-11-12] MEDS: APIXABAN 5 MG TABLET PO SCH ×2 (08:50→17:46)
[2020-11-12] MEDS: METFORMIN 500 MG TABLET PO SCH ×2 (08:50→17:45)
[2020-11-12] MEDS: AMLODIPINE BESYLATE 5 MG TABLET PO SCH (08:50)
[2020-11-12] MEDS: DEXAMETHASONE 4 MG TABLET PO SCH (08:50)
--- NOTE | 2020-11-12 09:00 | NUR ---
ms rn due med given,tolerated well.
[2020-11-12 12:00] VITALS: BP 121/66
[2020-11-12] MEDS: Magnesium 1GM/D5W 100ML PREMIX 100 ML IV SCH ×2 (12:31→13:43)
[2020-11-12] MEDS: INSULIN REGULAR, HUMAN 100 UNIT/ML 3 ML VIAL SQ PRN ×2 (12:34→18:49)
[2020-11-12 16:00] VITALS: BP 121/63
--- NOTE | 2020-11-12 19:00 | NUR ---
ms rn on bed, patient no distress, fio2 loewrewd down to 40%, saturating 95,all needs attended.
--- NOTE | 2020-11-12 19:15 | NUR ---
RECEIVED PATIENT IN BED, A/OX3 BELARUSIAN SPEAKING WITH LITTLE AMERICAN BREATHING EVEN AND UNLABORED,ABLE TO VERBALIZED NEEDS ON NON - REBREATHER MASK 15L AND HIGH FLOW NC, 40L, 40%FIO2, SPO2 IS 88-92%, , NORMAL SINUS RHYTHM ON TELE-MONITOR WITH HR 60-80S, APURVA AND FISH MIDLINES PATENT ,INTACT AND FLUSHED , SAFETY MEASURES IN PLACE, CALL LIGHT IN REACH, HOB ELEVATED, WILL CONT TO MONITOR .
[2020-11-12 20:00] VITALS: BP 105/60
[2020-11-12] MEDS: LORAZEPAM 0.5 MG TABLET PO SCH (21:13)
[2020-11-12] MEDS: SIMVASTATIN 20 MG TABLET PO SCH (21:13)
[2020-11-12] MEDS: *INSULIN REGULAR(HUMULIN R)HUM 100 UNIT/ML VIAL SQ PRN (21:45)
--- NOTE | 2020-11-12 22:45 | NUR ---
PT SATURATION IS DROPPING TO 85-88% CALLED RT TO INCREASE FIO2 TO 50% SPO2 NOW IS 91% WILL CONT TO MONITOR THE PT
[2020-11-13] VITALS: BP 104/68
[2020-11-13 04:00] VITALS: BP 107/61
[2020-11-13] MEDS: BENZONATATE 100 MG CAPSULE PO SCH ×3 (05:29→21:24)
[2020-11-13 06:39] LABS: CALCIUM, SERUM 8.8 mg/dL (8.5-10.1); CARBON DIOXIDE 29 mmol/L (21-32); CHLORIDE 100 mmol/L (98-107); CREATININE 0.5 mg/dL (0.6-1.3); GLUCOSE 107 mg/dL (74-106); MAGNESIUM 2.1 mg/dL (1.8-2.4); POTASSIUM 4.5 mmol/L (3.5-5.1); SODIUM SERUM 134 mmol/L (136-145); UREA NITROGEN, BLOOD 20 mg/dL (7-18)
--- NOTE | 2020-11-13 06:42 | NUR ---
PT ON BED ASLEEP EASY TO WAKE UP A/O X3 STILL ON HIGH FLOW 40L 50% FIO2 AND WITH SPO2 92% NO DISTRESS NOTED NO PAIN COMPLAINED NO SIGNIFICANT CHANGES ON CONDITION NOTED ALL NEEDS ATTENDED BED ON LOWEST POSITION AND LOCKED SIDE RAILS UP X2 CALL LIGHT WITHIN REACH WILL ENDORSED TO AM SHIFT NURSE
--- NOTE | 2020-11-13 07:30 | NUR ---
TELEMETRY OPENING NOTE RECEIVED PATIENT IN BED, A/OX3 SWAZI SPEAKING WITH LITTLE CZECH BREATHING EVEN AND UNLABORED,ABLE TO VERBALIZED NEEDS ON HIGH FLOW NC, 40L, 50% FIO2, SPO2 IS 89-92%, , NORMAL SINUS RHYTHM ON TELE-MONITOR WITH HR 60-80S, APURVA AND FISH MIDLINES PATENT ,INTACT AND FLUSHED , SAFETY MEASURES IN PLACE, CALL LIGHT IN REACH, HOB ELEVATED, WILL CONT TO MONITOR AND PROVIDE TREATMENT
[2020-11-13 08:00] VITALS: BP 103/67
[2020-11-13] MEDS: INSULIN REGULAR, HUMAN 100 UNIT/ML 3 ML VIAL SQ PRN ×3 (08:23→16:41)
[2020-11-13] MEDS: APIXABAN 5 MG TABLET PO SCH ×2 (08:24→16:42)
[2020-11-13] MEDS: BLOOD SUGAR DIAGNOSTIC 1 EACH STRIP VI SCH ×4 (08:24→21:24)
[2020-11-13] MEDS: GLUCERNA SHAKE 237 ML CAN PO SCH ×3 (08:25→16:42)
[2020-11-13] MEDS: METFORMIN 500 MG TABLET PO SCH ×2 (08:26→16:39)
[2020-11-13] MEDS: PROPRANOLOL HCL 10 MG TABLET PO SCH ×2 (08:27→21:24)
[2020-11-13] MEDS: LINAGLIPTIN 5 MG TABLET PO SCH (08:27)
[2020-11-13] MEDS: AMLODIPINE BESYLATE 5 MG TABLET PO SCH (08:27)
[2020-11-13] MEDS ORDERED: DEXAMETHASONE 4 MG TABLET PO SCH (09:00)
[2020-11-13 10:34] LABS: BASOPHILS # (AUTO) 0.1 /CMM (0.0-0.2); BASOPHILS % (AUTO) 0.8 % (0.0-2.0); EOSINOPHILS % (AUTO) 0.5 % (0.0-6.0); HEMATOCRIT 37 % (33-45); LYMPHOCYTES # (AUTO) 1.8 /CMM (0.8-4.8); LYMPHOCYTES % (AUTO) 10.1 % (20.0-44.0); MEAN CORPUSCULAR HGB CONC 32 g/dl (31.0-36.0); MEAN CORPUSCULAR VOLUME 85 fL (82-100); MONOCYTES # (AUTO) 0.7 /CMM (0.1-1.30); MONOCYTES % (AUTO) 4.2 % (2.0-12.0); NEUTROPHILS # (AUTO) 14.8 /CMM (1.8-8.9); NEUTROPHILS % (AUTO) 84.4 % (43.0-81.0); PLATELET COUNT (AUTO) 158 /CMM (150-450); RED BLOOD CELL COUNT(AUTO) 4.36 MIL/uL (4.0-5.2); WHITE BLOOD COUNT (AUTO) 17.5 K/uL (4.3-11.0)
[2020-11-13 12:00] VITALS: BP 112/64
[2020-11-13 16:00] VITALS: BP 122/66
--- NOTE | 2020-11-13 18:36 | NUR ---
TELEMETRY CLOSING NOTE RECEIVED PATIENT IN BED, A/OX3 MALAYSIAN SPEAKING WITH LITTLE KHMER BREATHING EVEN AND UNLABORED,ABLE TO VERBALIZED NEEDS ON HIGH FLOW NC 40L, 50% FIO2, SPO2 IS 90-92%NORMAL SINUS RHYTHM ON TELE-MONITOR WITH HR 60-80S, APURVA MIDLINES PATENT ,INTACT AND FLUSHED, SAFETY MEASURES IN PLACE, CALL LIGHT IN REACH, HOB ELEVATED, WILL ENDORSE TO PRODUCT DEVELOPMENT INTERN NURSE FOR MICK.
--- NOTE | 2020-11-13 19:30 | NUR ---
RN NOTE RECEIVED PT IN BED. ALERT AND ORIENTED X 4. O N HIGH FLOW AT 40L 50% FIO2. DENIES ANY SOB AND PAIN. O2 SAT AT 92 %. KEPT HOB ELEVATED. NO RESP DISTRESS NOTED. ON TELE MONITORING SHOW SR WITH HR OR 97. APURVA MIDLINE PATENT AND INTACT, FLUSHED. NO SIGNS OF INFECTION. DRESSING INTACT. ALL SAFETY MEASURES IMPLEMENTED PER PROTOCOL.SIDE RAILS UP, BED LOCKED IN LOWEST POSITION. CALL LIGHT WITHIN REACH.
[2020-11-13 20:00] VITALS: BP 127/62
[2020-11-13] MEDS: SIMVASTATIN 20 MG TABLET PO SCH (21:24)
[2020-11-13] MEDS: LORAZEPAM 0.5 MG TABLET PO SCH (21:24)
[2020-11-13] MEDS: *INSULIN REGULAR(HUMULIN R)HUM 100 UNIT/ML VIAL SQ PRN (21:30)
[2020-11-14] VITALS: BP 110/57
[2020-11-14 04:00] VITALS: BP 115/56
[2020-11-14] MEDS: BENZONATATE 100 MG CAPSULE PO SCH ×3 (05:04→21:46)
--- NOTE | 2020-11-14 06:48 | NUR ---
RN NOTE PT CONTINUE ON HIGH FLOW 40L 50 % FIO2.PT TOLERATING WELL. NO RESP DISTRESS NOTED. DENIES SOB DENIES PAIN. TELE MONITOR SHOWS SR WITH HR OF 87. NO ACUTE CHANGES ON CONDITION THROUGHOUT SHIFT. PT ABLE TO MAKE NEEDS KNOWN. NO S/SX OF HYPO/HYPERGLYCEMIA NOTED .CALL LIGHT WITHIN REACH AT ALL TIMES. SIDE RAILS UP X 2. WILL ENDORSE TO NEXT SHIFT NURSE FOR MICK.
--- NOTE | 2020-11-14 07:50 | NUR ---
RN OPENING NOTE PATIENT IS IN BED WITH HOB AT SEMI FOWLERS POSITION. PATIENT IS AOX4. PATIENT IS ON 4OL HIGH FLOW AT 50% WITH NO SIGNS OF DISTRESS. PATIENT DENIES PAIN. SKIN IS INTACT. APURVA MIDLINE IS PATENT, INTACT, AND HAS NO SIGNS OF INFILTRATION. BED IS LOCKED IN THE LOWEST POSITION, CALL OTTO WITHIN REACH, 3 GUARD RAILS RAISED, AND ALL HOSPITAL SAFETY PRECAUTIONS ARE BEING FOLLOWED. WILL CONTINUE TO MONITOR THROUGHOUT SHIFT.
[2020-11-14] MEDS: INSULIN REGULAR, HUMAN 100 UNIT/ML 3 ML VIAL SQ PRN ×3 (07:51→17:19)
[2020-11-14] MEDS: BLOOD SUGAR DIAGNOSTIC 1 EACH STRIP VI SCH ×4 (07:54→21:47)
[2020-11-14 08:00] VITALS: BP 112/51
[2020-11-14] MEDS: PROPRANOLOL HCL 10 MG TABLET PO SCH ×2 (08:52→21:46)
[2020-11-14] MEDS: AMLODIPINE BESYLATE 5 MG TABLET PO SCH (08:52)
[2020-11-14] MEDS: LINAGLIPTIN 5 MG TABLET PO SCH (08:53)
[2020-11-14] MEDS: METFORMIN 500 MG TABLET PO SCH ×2 (08:53→17:10)
[2020-11-14] MEDS: DEXAMETHASONE 4 MG TABLET PO SCH (08:53)
[2020-11-14] MEDS: APIXABAN 5 MG TABLET PO SCH ×2 (08:54→17:07)
[2020-11-14] MEDS: GLUCERNA SHAKE 237 ML CAN PO SCH ×3 (08:58→17:10)
[2020-11-14 12:00] VITALS: BP_SYST 112; BP_SYST 115; BP_DIAS 60; BP_DIAS 63
--- NOTE | 2020-11-14 12:00 | NUR ---
THERMAL MOLDER NOTE RESPIRATORY THERAPIST NAREN HAS TITRATED PATIENT TO 30% FiO2 ON 5OL. WILL CONTINUE TO MONITOR.
--- NOTE | 2020-11-14 15:45 | NUR ---
PIERCE AND SHAVE PRESS OPERATOR NOTE RESPIRATORY THERAPIST NAREN HAS TITRATED PATIENT TO 25% FiO2 ON 50L. WILL CONTINUE TO MONITOR.
[2020-11-14 16:00] VITALS: BP 113/68
--- NOTE | 2020-11-14 18:42 | NUR ---
RN CLOSING NOTES PATIENT IS IN BED WITH HOB AT SEMI FOWLERS POSITION. PATIENT IS AOX4. PATIENT IS CURRENTLY ON 40L AT 25% WITH NO SIGNS OF LABORED BREATHING. BEDSIDE COMMODE IS AT BEDSIDE. SKIN IS INTACT. APURVA MIDLINE IS PATENT, INTACT, AND HAS NO SIGNS OF INFILTRATION. BED IS LOCKED IN THE LOWEST POSITION, CALL OTTO WITHIN REACH, 3 GUARD RAILS RAISED, AND ALL HOSPITAL SAFETY PRECAUTIONS ARE BEING FOLLOWED. WILL ENDORSE TO VETERINARY TECHNOLOGIST RN.
[2020-11-14 20:00] VITALS: BP 117/70
--- NOTE | 2020-11-14 20:00 | NUR ---
RN OPENING NOTES RECEIVED PT IN BED ALERT AND ORIENTED, VERBALLY RESPONDING. ON HFNC 25L 50 % FIO2. NO DISTRESS NOTED. DENIES SOB DENIES PAIN. O2 SAT AT 92 %. KEPT HOB ELEVATED. TELE MONITOR SHOWS SR WITH HR OF 85. PTS MIDLINE ON APURVA INTACT AND PATENT, FLUSHED WELL. NO SIGNS OF INFILTRATION. DRESSING INTACT, NO SIGNS OF INFECTION. ALL SAFETY MEASURES IMPLEMENTED PER PROTOCOL. CALL LIGHT WITHIN REACH. BED LOCKED IN LOWEST POSITION. SIDE RAILS UP X 2. WILL CONTINUE TO MONITOR.
[2020-11-14] MEDS: SIMVASTATIN 20 MG TABLET PO SCH (21:46)
[2020-11-14] MEDS: LORAZEPAM 0.5 MG TABLET PO SCH (21:46)
[2020-11-14] MEDS: *INSULIN REGULAR(HUMULIN R)HUM 100 UNIT/ML VIAL SQ PRN (21:49)
--- NOTE | 2020-11-14 22:00 | NUR ---
RN NOTE ASSISTED PT TO BEDSIDE COMMODE. NO RESP DISTRESS NOTED. ALL DUE MEDS WERE GIVEN. WILL CONTINUE TO MONITOR.
[2020-11-15] VITALS: BP 104/62
[2020-11-15 04:00] VITALS: BP 113/64
[2020-11-15] MEDS: BENZONATATE 100 MG CAPSULE PO SCH ×3 (04:57→21:19)
[2020-11-15 07:06] LABS: CALCIUM, SERUM 8.8 mg/dL (8.5-10.1); CREATININE 0.6 mg/dL (0.6-1.3)
[2020-11-15 07:14] LABS: BASOPHILS # (AUTO) 0.1 /CMM (0.0-0.2); BASOPHILS % (AUTO) 0.3 % (0.0-2.0); EOSINOPHILS % (AUTO) 1.4 % (0.0-6.0); HEMATOCRIT 36 % (33-45); HEMOGLOBIN 11.6 g/dL (11.5-14.8); LYMPHOCYTES % (AUTO) 11.9 % (20.0-44.0); MEAN CORPUSCULAR HGB CONC 32 g/dl (31.0-36.0); MEAN CORPUSCULAR VOLUME 86 fL (82-100); MONOCYTES # (AUTO) 0.7 /CMM (0.1-1.30); NEUTROPHILS % (AUTO) 82.4 % (43.0-81.0); PLATELET COUNT (AUTO) 175 /CMM (150-450)
--- NOTE | 2020-11-15 07:15 | NUR ---
RN CLOSING NOTE PT REMAINS STABLE, CONTINUE ON HIGH FLOW 25L 50 % FIO2, TOLERATING WELL. NO RESP DISTRESS NOTED. DENIES SOB DENIES PAIN. O2 SAT AT 92-94%. TELE MONITOR SHOWS SR WITH HR OF 83. PT ABLE TO MAKE NEEDS KNOWN. NO S/SX OF HYPO/HYPERGLYCEMIA NOTED. MIDLINE ON APURVA REMAIN PATENT AND INTACT. DRESSING INTACT. CALL LIGHT WITHIN REACH AT ALL TIMES. SIDE RAILS UP X 2. WILL ENDORSE TO NEXT SHIFT NURSE FOR MICK.
--- NOTE | 2020-11-15 07:35 | NUR ---
TELE/RN OPENING NOTES RECEIVED PATIENT ON BED AWAKE ALERT AND ORIENTED X4. PATIENT IS ON HIGH FLOW OXYGEN SATURATING WELL. PATIENT IN NO APPARENT RESPIRATORY DISTRESS NOTED. NO COMPLAINED OF PAIN NOTED AT THIS TIME. WILL CONTINUE TO MONITOR.
[2020-11-15 08:00] VITALS: BP 116/63
--- NOTE | 2020-11-15 08:17 | NUR ---
pt. is awake and alert place into simple mask @ 10 lpm o2 flow. spo2 94% rr 20 BPM no increase work of breathing noted. Addendum: 11/15/20 at 0819 by KATHERINE ARDON RT Amended: Links added.
[2020-11-15] MEDS: METFORMIN 500 MG TABLET PO SCH ×2 (08:26→16:44)
[2020-11-15] MEDS: DEXAMETHASONE 4 MG TABLET PO SCH (08:27)
[2020-11-15] MEDS: PROPRANOLOL HCL 10 MG TABLET PO SCH ×2 (08:28→21:21)
[2020-11-15] MEDS: LINAGLIPTIN 5 MG TABLET PO SCH (08:29)
[2020-11-15] MEDS: INSULIN REGULAR, HUMAN 100 UNIT/ML 3 ML VIAL SQ PRN ×3 (08:36→17:04)
[2020-11-15] MEDS: BLOOD SUGAR DIAGNOSTIC 1 EACH STRIP VI SCH ×4 (08:36→21:30)
[2020-11-15] MEDS: APIXABAN 5 MG TABLET PO SCH ×2 (09:00→16:48)
[2020-11-15] MEDS: AMLODIPINE BESYLATE 5 MG TABLET PO SCH (09:00)
--- NOTE | 2020-11-15 09:46 | NUR ---
TELE/RN NOTES BP 116/63 P 81 NORVASC 5 1 TAB AND INDERAL 20 MG 2 TABS P.O. WAS NOT GIVEN. INDERAL 22 TABS WAS WASTED BECAUSE ITS OPEN.
[2020-11-15 10:19] LABS: EOSINOPHILS % (MANUAL) 2 % (0-4); LYMPHOCYTES % (MANUAL) 8 % (16-48); MONOCYTES % (MANUAL) 5 % (0-11.0); MYELOCYTES % 1 % (0-0); NEUTROPHILS % (MANUAL) 84 (42-76)
[2020-11-15] MEDS: GLUCERNA SHAKE 237 ML CAN PO SCH ×2 (11:53→17:09)
[2020-11-15 12:00] VITALS: BP 112/60
[2020-11-15 16:00] VITALS: BP 118/73
--- NOTE | 2020-11-15 18:35 | NUR ---
TELE/RN CLOSING NOTES PATIENT IS ON BED. ALERT AND ORIENTED X4. PATIENT IS ON 10L OXYGEN VIA FACE MASK SATURATION 97%. PATIENT IN NO APPARENT RESPIRATORY DISTRESS NOTED. NO COMPLAINED OF PAIN NOTED AT THIS TIME. TELE MONITOR READING SINUS RHYTHM 86 BPM. SEEN AND EXAMINED BY MD WITH ORDERS MADE CARRIED OUT. ALL DUE MEDICATIONS WAS GIVEN. IV ACCESS AT RIGHT UPPER MIDLINE PATENT AND INTACT. BED IN LOWEST POSITION AND LOCKED. SIDE RAILS UP X2. CALL LIGHT WITHIN REACH. WILL ENDORSED TO DIGITAL MEDIA STRATEGIST FOR MICK.
--- NOTE | 2020-11-15 19:30 | NUR ---
RN OPENING NOTES: RECEIVED MONGOLIAN SPEAKING PT A/OX 4 IN BED RESTING COMFORTABLY. PATIENT IN NO S/SX OF ACUTE DISTRESS AT THIS TIME CURRENTLY, PATIENT IS ON 10L OF 02 VIA FACE MASK TOLERATING WELL AND 02 SAT IS AT 94% AT THE TIME OF RECEIVED. PATIENT ON TELE MONITORING READING SINUS RHYTHM HR IS @89 AT THE TIME OF RECEIVED. PATIENT ON CONSISTENT CARB DIET; TOLERATES WELL. NOTED IV SITE ON R UA MIDLINE ;PATENT, INTACT AND FLUSHING WELL; NO S/S OF INFECTION OR INFILTRATION. SAFETY MEASURES HAVE BEEN PROVIDED AND IMPLEMENTED. PATIENT BED ALARM IS ON. HEAD OF BED ELEVATED. BED IS LOCKED, IN LOWEST POSITION AND SIDE RAILS UP. CALL LIGHT WITHIN REACH OF THE PATIENT. APPLICABLE ISOLATION PRECAUTIONS IN PLACE. WILL CONTINUE TO MONITOR AND REASSESS FOR ANY CHANGES AND WILL CARRY OUT ANY ONGOING AND ACTIVE MD ORDER.
[2020-11-15 20:00] VITALS: BP 123/73
[2020-11-15] MEDS: SIMVASTATIN 20 MG TABLET PO SCH (21:18)
[2020-11-15] MEDS: LORAZEPAM 0.5 MG TABLET PO SCH (21:19)
[2020-11-15] MEDS: *INSULIN REGULAR(HUMULIN R)HUM 100 UNIT/ML VIAL SQ PRN (21:31)
--- NOTE | 2020-11-15 23:00 | NUR ---
RN NOTES PATIENT REMAINS IN NO ACUTE RESPIRATORY DISTRESS AT THIS TIME, NO CHANGES TO CONDITION/STATUS. VICE CHANCELLOR WELL AWARE. WILL CONTINUE TO MONITOR AND REASSESS FOR ANY CHANGES THROUGHOUT THE SHIFT
[2020-11-16] VITALS: BP 108/59
--- NOTE | 2020-11-16 03:00 | NUR ---
RN NOTES NO CHANGES IN PATIENT CONDITION AT THIS TIME PATIENT VITALS STABLE, NO SIGNS OF ACUTE RESPIRATORY DISTRESS. PATIENT STILL IN BED SLEEPING COMFORTABLY. NO COMPLAINTS OF PAIN OR ANY DISCOMFORT AT THIS TIME. WILL CONTINUE TO MONITOR AND REASSESS FOR ANY CHANGES THROUGHOUT THE SHIFT.
[2020-11-16 04:00] VITALS: BP 123/62
[2020-11-16] MEDS: BENZONATATE 100 MG CAPSULE PO SCH ×3 (04:13→22:14)
--- NOTE | 2020-11-16 07:03 | NUR ---
RN CLOSING NOTE: PATIENT REMAINS IN ROOM IN NO SIGNS OF RESPIRATORY DISTRESS, SATURATING @ >95% SP02. SAFETY MEASURES IMPLEMENTED, BED IN LOWEST POSITION, LOCKED, SIDE RAILS UP, CALL LIGHT WITHIN REACH. ALL NEEDS AND ORDERS ADDRESSED DURING THE SHIFT. IV ACCESS MAINTAINED INTACT, SECURED AND FLUSHING WELL. ALL DUE MEDS GIVEN ORDERED & SCHEDULED ; PATIENT TOLERATED WELL. PATIENT KEPT CLEAN AND COMFORTABLE WITHIN THE SHIFT. PATIENT ENDORSED TO INCOMING SHIFT RN WITH STABLE VITAL SIGN AND FOR CONTINUITY OF CARE.
--- NOTE | 2020-11-16 07:05 | NUR ---
RN OPENING NOTES RECEIVED PT IN BED AWAKE, A/O X4. BURKINAN SPEAKING. ON 10L OF O2 VIA FACE MASK SAT @95%. NO SOB OR ANY S/SX OF ACUTE DISTRESS. TELE MONITORING READING SINUS RHYTHM. ON CONSISTENT CARB DIET. IV SITE ON APURVA MIDLINE PATENT, INTACT AND FLUSHED. SAFETY MEASURES IMPLEMENTED. CALL LIGHT WITHIN REACH. BED ALARM ON. HOB ELEVATED. BED LOCKED AND IN LOWEST POSITION WITH SIDE RAILS UP X2. WILL CONTINUE TO MONITOR.
[2020-11-16] MEDS ORDERED: IPRATROPIUM NEB FS 0.5 MG/2.5 ML AMPUL.NEB ONE (07:19)
[2020-11-16] MEDS ORDERED: ALBUTEROL FS 2.5 MG/3 ML VIAL.NEB ONE (07:19)
[2020-11-16] MEDS: BLOOD SUGAR DIAGNOSTIC 1 EACH STRIP VI SCH ×4 (07:30→22:16)
[2020-11-16 08:00] VITALS: BP 126/66
[2020-11-16] MEDS: LINAGLIPTIN 5 MG TABLET PO SCH (08:44)
[2020-11-16] MEDS: AMLODIPINE BESYLATE 5 MG TABLET PO SCH (08:44)
[2020-11-16] MEDS: PROPRANOLOL HCL 10 MG TABLET PO SCH ×2 (08:45→22:15)
[2020-11-16] MEDS: METFORMIN 500 MG TABLET PO SCH ×2 (08:45→16:40)
[2020-11-16] MEDS: DEXAMETHASONE 4 MG TABLET PO SCH (08:45)
[2020-11-16] MEDS: GLUCERNA SHAKE 237 ML CAN PO SCH ×3 (08:47→16:41)
[2020-11-16] MEDS: APIXABAN 5 MG TABLET PO SCH ×2 (08:47→16:44)
[2020-11-16] MEDS: INSULIN REGULAR, HUMAN 100 UNIT/ML 3 ML VIAL SQ PRN ×3 (09:32→17:52)
[2020-11-16 12:00] VITALS: BP 119/74
[2020-11-16 16:00] VITALS: BP 123/68
--- NOTE | 2020-11-16 18:47 | NUR ---
RN CLOSING NOTES PT RESTING IN BED, A/O X4. JAMAICAN SPEAKING. ON 10L OF HUMIDIFIED O2 VIA NC SAT @94%. NO SOB OR ANY S/SX OF ACUTE DISTRESS. TELE MONITORING READING SINUS RHYTHM. NEEDS ATTENDED. ALL DUE MEDS GIVEN. NO SIGNIFICANT CHANGES THROUGHOUT THE SHIFT. SAFETY MEASURES IMPLEMENTED. CALL LIGHT WITHIN REACH. BED ALARM ON. HOB ELEVATED. BED LOCKED AND IN LOWEST POSITION WITH SIDE RAILS UP X2. WILL ENDORSE TO NIGHT NURSE FOR MCIK.
--- NOTE | 2020-11-16 19:40 | NUR ---
RN OPENING NOTES RECEIVED PT IN BED. A/O X4 GHANAIAN SPEAKING, MINIMAL CITIZEN OF [place], LOW ALTITUDE AIR DEFENSE GUNNER UTILIZED. PT IS ON 10L OF O2 VIA NC WITH HUMIDIFICATION, TOLERATING WELL. NO SOB OR RESP DISTRESS NOTED. PT IS NSR 80S ON TELE MONITORING. IV SITE FLUSHED. PT DENIES PAIN. SAFETY MEASURES IN PLACE., HOB ELEVATED BED LOCKED IN LOWEST POSITION WITH ALARM ON. SIDE RAILS UP X2 CALL LIGHT WITHIN REACH. WILL CONT TO MONITOR
[2020-11-16 20:00] VITALS: BP 117/61
--- NOTE | 2020-11-16 20:04 | NUR ---
RT NOTE PT RECEIVED ON NASAL CANNULA @ 6LPM. PT AWAKE/ALERT. SPO2 @ 93%, HR 71, RR 22. NO RESPIRATORY DISTRESS NOTED.
--- NOTE | 2020-11-16 21:00 | NUR ---
REPORT TO OMAR FOR CONTINUATION OF CARE
--- NOTE | 2020-11-16 21:30 | NUR ---
RN NOTE RECEIVED PT IN BED,A/O X4 ON 10 L O2 VIA NC, PT HAS UNLABORED BREATHING.SAFETY MEASURES IN PLACE
[2020-11-16] MEDS: *INSULIN REGULAR(HUMULIN R)HUM 100 UNIT/ML VIAL SQ PRN (22:08)
[2020-11-16] MEDS: LORAZEPAM 0.5 MG TABLET PO SCH (22:14)
[2020-11-16] MEDS: SIMVASTATIN 20 MG TABLET PO SCH (22:16)
[2020-11-17] VITALS: BP 108/65
[2020-11-17 04:00] VITALS: BP 108/63
[2020-11-17] MEDS: BENZONATATE 100 MG CAPSULE PO SCH ×3 (05:07→20:21)
[2020-11-17 06:12] LABS: BASOPHILS # (AUTO) 0.1 /CMM (0.0-0.2); BASOPHILS % (AUTO) 0.4 % (0.0-2.0); EOSINOPHILS % (AUTO) 2.6 % (0.0-6.0); HEMATOCRIT 33 % (33-45); HEMOGLOBIN 10.9 g/dL (11.5-14.8); LYMPHOCYTES # (AUTO) 1.6 /CMM (0.8-4.8); LYMPHOCYTES % (AUTO) 11.8 % (20.0-44.0); MEAN CORPUSCULAR HGB CONC 33 g/dl (31.0-36.0); MEAN CORPUSCULAR VOLUME 85 fL (82-100); MONOCYTES # (AUTO) 0.6 /CMM (0.1-1.30); MONOCYTES % (AUTO) 4.4 % (2.0-12.0); NEUTROPHILS # (AUTO) 10.6 /CMM (1.8-8.9); NEUTROPHILS % (AUTO) 80.8 % (43.0-81.0); PLATELET COUNT (AUTO) 159 /CMM (150-450); RED BLOOD CELL COUNT(AUTO) 3.89 MIL/uL (4.0-5.2); WHITE BLOOD COUNT (AUTO) 13.1 K/uL (4.3-11.0)
[2020-11-17 07:07] LABS: CARBON DIOXIDE 29 mmol/L (21-32); CHLORIDE 99 mmol/L (98-107); GLUCOSE 156 mg/dL (74-106); POTASSIUM 4.4 mmol/L (3.5-5.1); SODIUM SERUM 133 mmol/L (136-145); UREA NITROGEN, BLOOD 15 mg/dL (7-18)
--- NOTE | 2020-11-17 07:20 | NUR ---
RN OPENING NOTES PATIENT RECEIVED IN BED RESTING COMFORTABLY A/O X4 TAMAZIGHT SPEAKING, MINIMAL IRISH. PT IS ON O2 THERAPY VIA NC AT 6 LPM WITH HUMIDIFICATION, TOLERATING WELL. NO SOB OR RESP DISTRESS NOTED. RIGHT UPPER ARM MIDLINE INTACT AND FLUSHES WELL. DRESSING CLEAN, INTACT, AND DRY. PT DENIES PAIN. ISOLATION PRECAUTIONS MAINTAINED. SAFETY PRECAUTIONS IMPLEMENTED, BED LOCKED IN LOWEST POSITION, SIDE RAILS UP X2, BED ALARM ON, CALL LIGHT WITHIN REACH. WILL CONTINUE TO MONITOR CLIENT AND PROVIDE CARE THROUGHOUT SHIFT.
[2020-11-17] MEDS: BLOOD SUGAR DIAGNOSTIC 1 EACH STRIP VI SCH ×4 (07:30→21:54)
--- NOTE | 2020-11-17 07:30 | NUR ---
RN PT REMAINED STABLE NO ACUTE CHANGES DURING MY SHIFT REPORT GIVEN TO INCOMING SHIFT FOR MICK.
[2020-11-17 07:36] LABS: CALCIUM, SERUM 8.7 mg/dL (8.5-10.1); CREATININE 0.4 mg/dL (0.6-1.3)
[2020-11-17 08:00] VITALS: BP 125/65
[2020-11-17] MEDS: GLUCERNA SHAKE 237 ML CAN PO SCH ×3 (08:00→17:50)
[2020-11-17] MEDS: LINAGLIPTIN 5 MG TABLET PO SCH (09:01)
[2020-11-17] MEDS: METFORMIN 500 MG TABLET PO SCH ×2 (09:01→16:12)
[2020-11-17] MEDS: PROPRANOLOL HCL 10 MG TABLET PO SCH ×2 (09:03→20:21)
[2020-11-17] MEDS: AMLODIPINE BESYLATE 5 MG TABLET PO SCH (09:04)
[2020-11-17] MEDS: APIXABAN 5 MG TABLET PO SCH ×2 (09:06→16:12)
[2020-11-17] MEDS: INSULIN REGULAR, HUMAN 100 UNIT/ML 3 ML VIAL SQ PRN ×4 (09:16→21:56)
[2020-11-17 12:00] VITALS: BP 114/54
[2020-11-17 16:00] VITALS: BP 119/68
--- NOTE | 2020-11-17 18:53 | NUR ---
RN CLOSING NOTES PATIENT IN BED RESTING COMFORTABLY A/O X4 MAORI SPEAKING, MINIMAL HUNGARIAN. PT IS ON O2 THERAPY VIA NC AT 6 LPM WITH HUMIDIFICATION, TOLERATING WELL. NO SOB OR RESP DISTRESS NOTED. RIGHT UPPER ARM MIDLINE INTACT AND FLUSHES WELL. DRESSING CLEAN, INTACT, AND DRY. PT DENIES PAIN. ISOLATION PRECAUTIONS MAINTAINED. SAFETY PRECAUTIONS IMPLEMENTED, BED LOCKED IN LOWEST POSITION, SIDE RAILS UP X2, BED ALARM ON, CALL LIGHT WITHIN REACH. WILL ENDORSE CARE TO UPCOMING SHIFT.
--- NOTE | 2020-11-17 19:00 | NUR ---
RN OPENING NOTE RECEIVED PATIENT IN BED RESTING ALERT ORIENTED X4 VERBALLY RESPONSIVE ON 6L OXYGEN VIA NASAL CANNULA,O2:91% IV SITE IS ON RIGHT UPPER ARM MID LINE INTACT PATENT,CONTINENT TO BOWEL/BLADDER,CALL LIGHT WITHIN REACH,SAFETY MEASURE IMPLEMENT,BED IN LOW POSITION AND LOCKED CONTINUE TO MONITOR.
[2020-11-17 19:34] LABS: BASOPHILS # (AUTO) 0.1 /CMM (0.0-0.2); BASOPHILS % (AUTO) 0.6 % (0.0-2.0); EOSINOPHILS % (AUTO) 3.2 % (0.0-6.0); HEMATOCRIT 36 % (33-45); HEMOGLOBIN 11.9 g/dL (11.5-14.8); LYMPHOCYTES # (AUTO) 1.6 /CMM (0.8-4.8); LYMPHOCYTES % (AUTO) 9.5 % (20.0-44.0); MEAN CORPUSCULAR HGB CONC 33 g/dl (31.0-36.0); MEAN CORPUSCULAR VOLUME 85 fL (82-100); MONOCYTES # (AUTO) 0.8 /CMM (0.1-1.30); MONOCYTES % (AUTO) 4.5 % (2.0-12.0); NEUTROPHILS # (AUTO) 13.6 /CMM (1.8-8.9); NEUTROPHILS % (AUTO) 82.2 % (43.0-81.0); PLATELET COUNT (AUTO) 194 /CMM (150-450); RED BLOOD CELL COUNT(AUTO) 4.25 MIL/uL (4.0-5.2); WHITE BLOOD COUNT (AUTO) 16.6 K/uL (4.3-11.0)
[2020-11-17 20:00] VITALS: BP 125/76
[2020-11-17] MEDS: SIMVASTATIN 20 MG TABLET PO SCH (21:33)
[2020-11-17] MEDS: LORAZEPAM 0.5 MG TABLET PO SCH (21:33)
[2020-11-18] VITALS: BP 119/66
[2020-11-18 04:00] VITALS: BP 116/68
[2020-11-18] MEDS: BENZONATATE 100 MG CAPSULE PO SCH ×3 (04:03→22:04)
--- NOTE | 2020-11-18 06:36 | NUR ---
RN CLOSING NOTE PATIENT REMAINS ON ALERT ORIENTED X4 VERBALLY RESPONSIVE,ABLE TO MAKE NEEDS KNOWN, ON 6L OXYGEN VIA NASAL CANNULA,O2:90-91% IV SITE IS ON RIGHT UPPER ARM MID LINE,INTACT PATENT,ALL DUE MEDS GIVEN MD ORDERED TOLERATED ,KEPT CALL LIGHT WITHIN REACH,KEPT COMFORTABLE,ALL NEEDS MET.ENDORSE NEXT SHIFT FOR CONTINUATION OF CARE.
[2020-11-18 06:54] LABS: BASOPHILS # (AUTO) 0.1 /CMM (0.0-0.2); BASOPHILS % (AUTO) 0.5 % (0.0-2.0); EOSINOPHILS % (AUTO) 3.8 % (0.0-6.0); HEMATOCRIT 35 % (33-45); HEMOGLOBIN 11.5 g/dL (11.5-14.8); LYMPHOCYTES # (AUTO) 1.9 /CMM (0.8-4.8); MEAN CORPUSCULAR HGB CONC 33 g/dl (31.0-36.0); MEAN CORPUSCULAR VOLUME 85 fL (82-100); MONOCYTES # (AUTO) 0.6 /CMM (0.1-1.30); MONOCYTES % (AUTO) 4.5 % (2.0-12.0); NEUTROPHILS # (AUTO) 11.2 /CMM (1.8-8.9); NEUTROPHILS % (AUTO) 78.2 % (43.0-81.0); PLATELET COUNT (AUTO) 188 /CMM (150-450); RED BLOOD CELL COUNT(AUTO) 4.13 MIL/uL (4.0-5.2); WHITE BLOOD COUNT (AUTO) 14.3 K/uL (4.3-11.0)
[2020-11-18 07:15] LABS: CALCIUM, SERUM 8.9 mg/dL (8.5-10.1); CARBON DIOXIDE 29 mmol/L (21-32); CHLORIDE 98 mmol/L (98-107); CREATININE 0.5 mg/dL (0.6-1.3); GLUCOSE 154 mg/dL (74-106); POTASSIUM 4.3 mmol/L (3.5-5.1); SODIUM SERUM 134 mmol/L (136-145); UREA NITROGEN, BLOOD 14 mg/dL (7-18)
--- NOTE | 2020-11-18 07:40 | NUR ---
ms rn received on bed, awake,aler oriented x4,not in any form of distress, respirations even and unlabored,no sob noted, will monitor patient.
[2020-11-18 08:00] VITALS: BP 119/70
[2020-11-18] MEDS: METFORMIN 500 MG TABLET PO SCH ×2 (09:00→16:48)
--- NOTE | 2020-11-18 09:00 | NUR ---
ms cuadra breakfast served,due meds given,tolerated well.
[2020-11-18] MEDS: PROPRANOLOL HCL 10 MG TABLET PO SCH ×2 (09:01→22:04)
[2020-11-18] MEDS: AMLODIPINE BESYLATE 5 MG TABLET PO SCH (09:01)
[2020-11-18] MEDS: LINAGLIPTIN 5 MG TABLET PO SCH (09:01)
[2020-11-18] MEDS: APIXABAN 5 MG TABLET PO SCH ×2 (09:02→16:49)
[2020-11-18] MEDS: INSULIN REGULAR, HUMAN 100 UNIT/ML 3 ML VIAL SQ PRN ×2 (09:04→13:46)
[2020-11-18] MEDS: BLOOD SUGAR DIAGNOSTIC 1 EACH STRIP VI SCH ×4 (09:16→22:30)
[2020-11-18] MEDS: GLUCERNA SHAKE 237 ML CAN PO SCH ×3 (09:17→16:48)
--- NOTE | 2020-11-18 10:00 | NUR ---
ms cuadra was seen by miller w/ orders made and carried out.
[2020-11-18 10:45] LABS: EOSINOPHILS % (MANUAL) 2 % (0-4); LYMPHOCYTES % (MANUAL) 14 % (16-48); MONOCYTES % (MANUAL) 4 % (0-11.0); NEUTROPHILS % (MANUAL) 80 (42-76)
[2020-11-18 12:00] VITALS: BP 120/70
--- NOTE | 2020-11-18 12:30 | NUR ---
ms rn was seen by dr. tubbs , will monitor patient.
[2020-11-18 16:00] VITALS: BP 117/76
--- NOTE | 2020-11-18 19:30 | NUR ---
ms rn on bed, no distress noted.
--- NOTE | 2020-11-18 19:46 | NUR ---
RN NOTE RECEIVED PT IN BED ALERT AND ORIENTED X4. ON O2 VIA NC AT 6LPM, DENIES ANY SOB. NO RESP DISTRESS NOTED. APURVA MIDLINE PATENT AND INTACT. NO SIGNS OF INFECTION. SKIN WARM TO TOUCH, SKIN INTACT. ALL SAFETY MEASURES IMPLEMENTED PER PROTOCOL, CALL LIGHT WITHIN REACH, BED LOCKED IN LOWEST POSITION, SIDE RAILS UP X 2. BED ALARM ON.
[2020-11-18 20:00] VITALS: BP 119/68
[2020-11-18] MEDS: LORAZEPAM 0.5 MG TABLET PO SCH (22:30)
[2020-11-18] MEDS: SIMVASTATIN 20 MG TABLET PO SCH (22:30)
[2020-11-18] MEDS: *INSULIN REGULAR(HUMULIN R)HUM 100 UNIT/ML VIAL SQ PRN (22:32)
[2020-11-19] VITALS: BP 105/69
--- NOTE | 2020-11-19 02:00 | NUR ---
RN NOTE PT USES BEDPAN, O2 SAT AT GOES TO 87-88% ON EXERTION, BUT DENIES ANY SOB. OFFERED HIGHER O2 VIA SIMPLE MASK, PT REFUSED. EXPLAINED RISKS AND BENEFITS. PER PT SHE FEELS FINE AND WILL JUST NEED TO BE RESTED TO BRING O2SAT UP. WILL CONTINUE TO MONITOR. NO RESP DISTRESS NOTED.
[2020-11-19 04:00] VITALS: BP 112/74
[2020-11-19] MEDS: BENZONATATE 100 MG CAPSULE PO SCH ×3 (05:19→21:18)
--- NOTE | 2020-11-19 06:34 | NUR ---
RN NOTES PT SLEEPING COMFORTABLY, EASILY AROUSABLE BY VERBAL STIMULI. CONTINUE ON O2 THERAPY OF 6LPM VIA NC. NO RESP DISTRESS NOTES, O2 SAT AT 91%.PT ABLE TO MAKE NEEDS KNOWN. DENIES PAIN AT THIS TIME. ON FREQUENT VISUAL CHECK. NO SIGNIFICANT CHANGES, REMAINS STABLE. WILL ENDORSE TO NEXT SHIFT NURSE FOR MICK. CALL LIGHT WITHIN REACH AT ALL TIMES.
[2020-11-19 06:40] LABS: BASOPHILS # (AUTO) 0.1 /CMM (0.0-0.2); BASOPHILS % (AUTO) 0.6 % (0.0-2.0); EOSINOPHILS % (AUTO) 4.1 % (0.0-6.0); HEMATOCRIT 34 % (33-45); HEMOGLOBIN 11.2 g/dL (11.5-14.8); LYMPHOCYTES # (AUTO) 1.6 /CMM (0.8-4.8); LYMPHOCYTES % (AUTO) 13.3 % (20.0-44.0); MEAN CORPUSCULAR HGB CONC 33 g/dl (31.0-36.0); MEAN CORPUSCULAR VOLUME 84 fL (82-100); MONOCYTES # (AUTO) 0.5 /CMM (0.1-1.30); MONOCYTES % (AUTO) 4.3 % (2.0-12.0); NEUTROPHILS # (AUTO) 9.3 /CMM (1.8-8.9); NEUTROPHILS % (AUTO) 77.7 % (43.0-81.0); PLATELET COUNT (AUTO) 167 /CMM (150-450); RED BLOOD CELL COUNT(AUTO) 3.99 MIL/uL (4.0-5.2)
[2020-11-19 06:48] LABS: CARBON DIOXIDE 33 mmol/L (21-32); CHLORIDE 100 mmol/L (98-107); CREATININE 0.5 mg/dL (0.6-1.3); GLUCOSE 167 mg/dL (74-106); POTASSIUM 4.1 mmol/L (3.5-5.1); SODIUM SERUM 137 mmol/L (136-145); UREA NITROGEN, BLOOD 11 mg/dL (7-18)
--- NOTE | 2020-11-19 07:30 | NUR ---
PT RECEIVED RESTING COMFORTABLY IN BED. NO S/S OR C/O PAIN OR DISTRESS NOTED. SIDERAILS UP X2, CALL LIGHT LEFT WITHIN REACH. WILL CONTINUE PLAN OF CARE.
[2020-11-19 08:00] VITALS: BP 145/86
[2020-11-19] MEDS: METFORMIN 500 MG TABLET PO SCH ×2 (09:35→16:29)
[2020-11-19] MEDS: AMLODIPINE BESYLATE 5 MG TABLET PO SCH (09:35)
[2020-11-19] MEDS: LINAGLIPTIN 5 MG TABLET PO SCH (09:35)
[2020-11-19] MEDS: PROPRANOLOL HCL 10 MG TABLET PO SCH ×2 (09:36→21:17)
[2020-11-19] MEDS: APIXABAN 5 MG TABLET PO SCH ×2 (09:43→17:56)
[2020-11-19] MEDS: GLUCERNA SHAKE 237 ML CAN PO SCH ×3 (09:44→16:32)
[2020-11-19] MEDS: INSULIN REGULAR, HUMAN 100 UNIT/ML 3 ML VIAL SQ PRN ×2 (09:51→17:57)
[2020-11-19] MEDS: BLOOD SUGAR DIAGNOSTIC 1 EACH STRIP VI SCH ×4 (09:52→21:25)
[2020-11-19 10:55] LABS: ABG OXYGEN SATURATION 91.5 % (92.0-98.5); ABG PCO2 42.2 mmHg (35.0-45.0); ABG PH 7.485 (7.350-7.450); AaDO2 211.9 mmHg; COHb 0.5 % (0.5-1.5); MetHb 0.3 % (0.0-1.5); O2Hb 90.8 % (94.0-97.0); SITE, ABG Left Radial; VENT MODE, BG Nasal Cannula
[2020-11-19 12:00] VITALS: BP 145/86
--- NOTE | 2020-11-19 15:04 | NUR ---
RN NOTE RECEIVED REPORT FROM JENNIFER FOR [facility]. PT RESTING IN BED. V/S STABLE. NO COMPLAINT OF PAIN. WILL CONTINUE TO MONITOR.
[2020-11-19 16:00] VITALS: BP 106/68
--- NOTE | 2020-11-19 18:50 | NUR ---
RN CLOSING NOTE PT AWAKE IN BED. A/O X3 AND COOPERATIVE DEMEANOR. ABLE TO MAKE NEEDS KNOWN TO NURSES. NO COMPLAINT OF PAIN. ON 5L O2 VIA NC. NO RESPIRATORY DISTRESS PRESENT. SINUS RHYTHM ON EXTERNAL MONITOR. CURRENTLY ON BEDREST. GAIT UNSTEADY. MIDLINE PRESENT IN R UA. SKIN INTACT. SAFETY MEASURES IN PLACE. SIDE RAILS RAISED. BED LOWERED. CALL LIGHT WITHIN REACH. ROUTINE MEDS GIVEN. REPORT GIVEN TO NIGHT NURSE.
--- NOTE | 2020-11-19 19:30 | NUR ---
TELE1 RN NOTES RECEIVED ON BED A/O X4,BREATHING REGULAR,NOT IN ANY FORM OF DISTRESS,O2 IN USED AT 6L/NC,O2 SAT 89%.ENCOURAGED TO TAKE A DEEP BREATH.WITH APURVA MIDLINE FOR MEDS,ISOLATION FOR COVD POSITIVE.CALL LIGHT IN REACH,NEEDS ANTICIPATED.
[2020-11-19 20:00] VITALS: BP 132/66
[2020-11-19] MEDS: *INSULIN REGULAR(HUMULIN R)HUM 100 UNIT/ML VIAL SQ PRN (21:27)
--- NOTE | 2020-11-19 22:00 | NUR ---
TELE1 RN NOTES ACCU-CHECK BLOOD SUGAR CHECK 169,COVERED WITH HUMULIN R 3 UNITS PER SLIDING SCALE.
[2020-11-19] MEDS: LORAZEPAM 0.5 MG TABLET PO SCH (22:03)
[2020-11-19] MEDS: SIMVASTATIN 20 MG TABLET PO SCH (22:03)
[2020-11-20] VITALS: BP 107/67
[2020-11-20 04:00] VITALS: BP 111/75
[2020-11-20] MEDS: BENZONATATE 100 MG CAPSULE PO SCH ×2 (05:02→12:57)
--- NOTE | 2020-11-20 06:54 | NUR ---
TELE1 RN NOTES FAIRLY RESTED AT NIGHT,O2 SAT REMAINS AT 88-89%,NO SOB,IN NO ACUTE DISTRESS.
--- NOTE | 2020-11-20 07:25 | NUR ---
RN OPENING NOTES PATIENT RECEIVED IN BED RESTING COMFORTABLY A/O X4 [place] SPEAKING, MINIMAL CZECH. PT IS ON O2 THERAPY VIA NC AT 6 LPM WITH HUMIDIFICATION, TOLERATING WELL. NO SOB OR RESP DISTRESS NOTED. RIGHT UPPER ARM MIDLINE INTACT AND FLUSHES WELL. DRESSING CLEAN, INTACT, AND DRY. PT DENIES PAIN. ISOLATION PRECAUTIONS MAINTAINED. SAFETY PRECAUTIONS IMPLEMENTED, BED LOCKED IN LOWEST POSITION, SIDE RAILS UP X2, BED ALARM ON, CALL LIGHT WITHIN REACH. WILL CONTINUE TO MONITOR CLIENT AND PROVIDE CARE THROUGHOUT SHIFT.
[2020-11-20] MEDS: BLOOD SUGAR DIAGNOSTIC 1 EACH STRIP VI SCH ×2 (07:30→12:48)
[2020-11-20 08:00] VITALS: BP 117/75
[2020-11-20] MEDS: GLUCERNA SHAKE 237 ML CAN PO SCH ×2 (08:00→12:29)
[2020-11-20] MEDS: METFORMIN 500 MG TABLET PO SCH (09:32)
[2020-11-20] MEDS: LINAGLIPTIN 5 MG TABLET PO SCH (09:33)
[2020-11-20] MEDS: PROPRANOLOL HCL 10 MG TABLET PO SCH (09:33)
[2020-11-20] MEDS: AMLODIPINE BESYLATE 5 MG TABLET PO SCH (09:33)
[2020-11-20] MEDS: APIXABAN 5 MG TABLET PO SCH (09:34)
[2020-11-20] MEDS: INSULIN REGULAR, HUMAN 100 UNIT/ML 3 ML VIAL SQ PRN (09:35)
[2020-11-20 12:00] VITALS: BP 114/70
[2020-11-20] MEDS: *INSULIN REGULAR(HUMULIN R)HUM 100 UNIT/ML VIAL SQ PRN (12:51)
--- NOTE | 2020-11-20 14:01 | NUR ---
PATIENT D/C FROM HOSPITAL IN STABLE CONDITION. CARE TRANSFERRED OVER TO [facility] FOR TRANSPORTATION. PAPERWORK GAVE TO PATIENT. CALLED AND GAVE REPORT TO SCOTTY AT RECEIVING FACILITY.
== END 2020-11-20 14:01 | DRG 871 ==
LOC: ER 16:04 → TRANSITION 17:57 → TELE1 19:22
PROVIDERS: ADMIT Nurse Practitioner Acute Care; ATTEND Nurse Practitioner Acute Care
PROC: XW033E5 Introduction of Remdesivir Anti-infective into Peripheral Vein, Percutaneous Approach, New Technology Group 5 (ICD-10-PCS; principal; 2020-11-01)
PROC: XW033H5 Introduction of Tocilizumab into Peripheral Vein, Percutaneous Approach, New Technology Group 5 (ICD-10-PCS; 2020-11-01)
PROC: 05HA33Z Insertion of Infusion Device into Left Brachial Vein, Percutaneous Approach (ICD-10-PCS; 2020-11-01)
PROC: 05H933Z Insertion of Infusion Device into Right Brachial Vein, Percutaneous Approach (ICD-10-PCS; 2020-11-01)
DX: A41.89 Other specified sepsis (principal); U07.1 COVID-19; J96.01 Acute respiratory failure with hypoxia; J12.82 Pneumonia due to coronavirus disease 2019; J15.9 Unspecified bacterial pneumonia; N17.0 Acute kidney failure with tubular necrosis; E44.0 Moderate protein-calorie malnutrition; E22.2 Syndrome of inappropriate secretion of antidiuretic hormone; E78.5 Hyperlipidemia, unspecified; E66.9 Obesity, unspecified; I11.0 Hypertensive heart disease with heart failure; I50.9 Heart failure, unspecified; Z68.29 Body mass index [BMI] 29.0-29.9, adult; E11.65 Type 2 diabetes mellitus with hyperglycemia; Z79.84 Long term (current) use of oral hypoglycemic drugs; Z79.51 Long term (current) use of inhaled steroids; Z79.899 Other long term (current) drug therapy; Z68.31 Body mass index [BMI] 31.0-31.9, adult; E83.51 Hypocalcemia; N13.9 Obstructive and reflux uropathy, unspecified; T39.395A Adverse effect of other nonsteroidal anti-inflammatory drugs [NSAID], initial encounter; Y92.9 Unspecified place or not applicable
CPT/HCPCS: 36410; 36415; 36600; 71045-TC; 80048-TC; 80053-TC; 80076-TC; 82550-TC; 82728-TC; 82803-TC; 82962-TC; 83605-TC; 83615-TC; 83735-TC; 83880; 84100-TC; 84443-TC; 84484-TC; 84550-TC; 85025-TC; 85378-TC; 85610-TC; 85730-TC; 86140; 86140-TC; 86480; 86803; 86850-TC; 87040-TC; 87081-TC; 87536; 87899; 93308-TC; 94760-TC; 94799-TC; 97110-TC; 97116-TC; 97530-TC; A4216; G0378; J0692; J1100; J1200; J1815; J1940; J2405; J3262; J3475; J3490; J7030; J7050; J7060; J8540; U0003